=== PATIENT | female | born 1990 | race Caucasian/White ===

== ENCOUNTER 2017-12-22 01:20 | Inpatient (IN) | payer OTHER ==
[2017-12-22] MEDS ORDERED: CARBOPROST TROMETHAMINE 250 MCG/ML 1 ML AMP IM PRN (01:44)
[2017-12-22] MEDS ORDERED: LIDOCAINE 1% (PF) 10 MG/ML (30 ML SDV) SQ PRN (01:44)
[2017-12-22] MEDS ORDERED: OXYTOCIN 10 UNIT/ML 1 ML VIAL IM PRN (01:44)
[2017-12-22] MEDS ORDERED: TERBUTALINE 1 MG/ML VIAL SQ PRN (01:44)
[2017-12-22] MEDS ORDERED: BUTORPHANOL 1 MG/ML 1 ML VIAL IV PRN (01:44)
[2017-12-22] MEDS ORDERED: METHYLERGONOVINE 0.2 MG/ML 1 ML AMP IM PRN (01:44)
[2017-12-22] MEDS ORDERED: OXYTOCIN 20 UNITS/1000 ML NS 1,000 ML IV SCH ×3 (01:45→07:45)
[2017-12-22] MEDS: LACTATED RINGERS 1,000 ML IV SCH ×2 (02:08→07:15)
[2017-12-22 02:36] LABS: Basophils # (A) 0.1 k/uL (0-0.2); Basophils % (A) 1 %; Eosinophils # (A) 0.1 k/uL (0-0.7); Eosinophils % (A) 1 %; HCT 36.5 % (34.0-46.0); Lymphocytes % (A) 25 %; MCH 31.5 pg (25.0-35.0); MCHC 32.9 g/dL (31.0-37.0); MCV 95.7 fL (80.0-100.0); Mean Platelet Volume 7.1; Monocytes # (A) 0.7 k/uL (0-1.0); Monocytes % (A) 9 %; Neutrophils # (A) 4.8 k/uL (1.3-7.7); Neutrophils % (A) 61 %; Platelet Count 268 k/uL (150-450); RBC 3.81 m/uL (3.80-5.40); RDW 12.9 % (11.5-15.5); WBC 7.9 k/uL (3.8-10.6)
[2017-12-22] MEDS ORDERED: IBUPROFEN 600 MG TAB PO PRN (07:43)
[2017-12-22] MEDS ORDERED: ZOLPIDEM 5 MG TAB PO PRN (07:43)
[2017-12-22] MEDS ORDERED: diphenhydrAMINE 50 MG/ML 1 ML VIAL IVP PRN ×4 (07:43→07:44)
[2017-12-22] MEDS ORDERED: LANOLIN CREAM 5 GM TUBE TOPICAL PRN (07:43)
[2017-12-22] MEDS ORDERED: ACETAMINOPHEN TAB 325 MG TAB PO PRN ×2 (07:43→07:44)
[2017-12-22] MEDS ORDERED: diphenhydrAMINE 50 MG CAP PO PRN ×2 (07:43→07:44)
[2017-12-22] MEDS ORDERED: HYDROCORTISONE 2.5% RECTAL CREAM 30 GM TUBE RECTAL PRN (07:43)
[2017-12-22] MEDS ORDERED: diphenhydrAMINE 25 MG CAP PO PRN ×2 (07:43→07:44)
[2017-12-22] MEDS ORDERED: BENZOCAINE/MENTHOL SPRAY 1 GM/SPRAY AEROSOL TOPICAL PRN ×2 (07:43→07:44)
[2017-12-22] MEDS ORDERED: WITCH HAZEL 1 EACH MED..PAD TOPICAL PRN (07:43)
[2017-12-22] MEDS ORDERED: SIMETHICONE 80 MG CHEWABLE PO PRN (07:43)
--- NOTE | 2017-12-22 07:51 | P.HPOB ---
History of Present Illness H&P Date: 12/22/17 Chief Complaint: SROM 27 year old presents at 36 weeks 3 days in with spontaneous rupture of membranes at 1am. HEr cervix is 2-3/60/-3. She is stiven every 3-5 minutes. heart tones 130-135 with moderate variability and reactive. Review of Systems All systems: negative Constitutional: Denies chills, Denies fever Eyes: denies blurred vision, denies pain Ears, nose, mouth and throat: Denies headache, Denies sore throat Cardiovascular: Denies chest pain, Denies shortness of breath Respiratory: Denies cough Gastrointestinal: Denies abdominal pain, Denies diarrhea, Denies nausea, Denies vomiting Genitourinary: Denies dysuria, Denies hematuria Musculoskeletal: Denies myalgias Integumentary: Denies pruritus, Denies rash Neurological: Denies numbness, Denies weakness Psychiatric: Denies anxiety, Denies depression Endocrine: Denies fatigue, Denies weight change Past Medical History Past Medical History: No Reported History Additional Past Medical History / Comment(s): OB history: first two pregnancies were vaginal deliveries at 39 and 40 weeks. This is her third and she has had care with Dr. Phillips since 8 weeks gestation. Blood type is A+, antibodies negative, rubella immune, RPR nonreactive, hepatitis B negative, HIV nonreactive, toxoplasmosis negative, GBS negative. History of Any Multi-Drug Resistant Organisms: None Reported Past Surgical History: Tonsillectomy Additional Past Surgical History / Comment(s): wisdom teeth Past Anesthesia/Blood Transfusion Reactions: No Reported Reaction Past Psychological History: No Psychological Hx Reported Smoking Status: Never smoker Past Alcohol Use History: None Reported Past Drug Use History: None Reported - Past Family History Mother Family Medical History: No Reported History Medications and Allergies Home Medications Medication Instructions Recorded Confirmed Type Loratadine [Claritin] 10 mg PO DAILY 10/16/17 12/22/17 History Pnv,Calcium 72/Iron/Folic Acid 1 tab PO DAILY 10/16/17 12/22/17 History [ Plus Tablet] Allergies Allergy/AdvReac Type Severity Reaction Status Date / Time No Known Allergies Allergy Verified 12/22/17 01:33 Exam Osteopathic Statement: *. No significant issues noted on an osteopathic structural exam other than those noted in the History and Physical/Consult. Vital Signs Temp Pulse Resp BP Pulse Ox 12/22/17 01:47 97.3 F L 67 16 124/71 99 12/22/17 01:44 97.3 F L 73 16 124/71 100 Intake and Output 12/21/17 12/22/17 12/22/17 22:59 06:59 14:59 Other: Weight 79.379 kg Heart: Regular rate and rhythm Lungs: Clear to auscultation bilaterally Abdomen: Soft, nontender Extremities: Negative Homans sign Results Result Diagrams: 12/22/17 02:18 Assessment and Plan (1) Spontaneous rupture of membranes Current Visit: Yes Status: Acute Code(s): WUQ7590 - SNOMED Code(s): 142020658 (2) Normal labor Current Visit: Yes Status: Acute Code(s): O80 - ENCOUNTER FOR FULL-TERM UNCOMPLICATED DELIVERY; Z37.9 - OUTCOME OF DELIVERY, UNSPECIFIED SNOMED Code(s ): 30781594 Plan: 1. Expectant management 2. Anticipate normal vaginal delivery
[2017-12-22] MEDS: IBUPROFEN 600 MG TAB PO PRN ×3 (08:01→19:17)
--- NOTE | 2017-12-22 08:07 | P.PROBDLV ---
Vaginal Delivery Note - . Vaginal Delivery Note: Patient precipitously advanced to complete and pushing going from 3 cm to complete and pushing in less than an hour. I happened to be on the OB unit and was called in for delivery of Zara. Head was delivered without difficulty from left occiput anterior position and anterior posterior shoulders were easily delivered with gentle downward upper traction followed by the remainder the baby. Once baby was delivered mouth nares were bulb suctioned and baby was then placed on mother's abdomen where the umbilical cord was allowed to pulsate for 20 seconds prior to clamping and cutting. Once clamped and cut nursery personnel was present to assume care. Placenta was then delivered intact but had a velamentous insertion in the cord almost completely popped off. It will be sent to pathology for evaluation. A second-degree midline laceration was noted and repaired in usual fashion. scores were 8 and 9 at one and 5 minutes respectively and the weight was 7 lbs. 8 oz. Both mother and baby appear stable following delivery.
[2017-12-22] MEDS: SENNOSIDES-DOCUSATE SODIUM 1 EACH TAB PO SCH (19:17)
[2017-12-23] MEDS: IBUPROFEN 600 MG TAB PO PRN ×2 (04:34→12:25)
[2017-12-23 06:01] LABS: Basophils % (A) 0 %; Eosinophils # (A) 0.1 k/uL (0-0.7); Eosinophils % (A) 1 %; HCT 34.3 % (34.0-46.0); HGB 11.3 gm/dL (11.4-16.0); Lymphocytes # (A) 2.2 k/uL (1.0-4.8); Lymphocytes % (A) 24 %; MCV 97.2 fL (80.0-100.0); Mean Platelet Volume 7.1; Monocytes # (A) 0.6 k/uL (0-1.0); Monocytes % (A) 7 %; Neutrophils # (A) 6.2 k/uL (1.3-7.7); Neutrophils % (A) 67 %; Platelet Count 244 k/uL (150-450); RBC 3.53 m/uL (3.80-5.40); RDW 12.9 % (11.5-15.5); WBC 9.3 k/uL (3.8-10.6)
[2017-12-23] MEDS: SENNOSIDES-DOCUSATE SODIUM 1 EACH TAB PO SCH ×3 (07:17→21:59)
--- NOTE | 2017-12-23 08:53 | P.PNOBGVD ---
Subjective - Subjective Principal diagnosis: Status post vaginal delivery day #1 Interval history: Patient is ambulating. Lochia is moderate. She is pumping her breast milk. Baby is in level I nursery at this time. Patient reports: Reports appetite normal, Reports voiding normally, Reports pain well controlled, Reports ambulating normally : other (In level I nursery) Objective - Latest Vital Signs Latest vital signs: Vital Signs Temp Pulse Resp BP Pulse Ox 12/23/17 07:47 98.4 F 65 18 112/73 100 12/23/17 00:00 71 16 96/51 12/22/17 20:00 63 16 123/68 12/22/17 15:16 98.6 F 71 15 114/61 12/22/17 09:45 96.2 F L 67 16 107/57 12/22/17 09:15 77 15 110/55 - Exam Extremities: Present: edema. Absent: tenderness Abdomen: Present: normal appearance, soft. Absent: distention, tenderness Uterus: Present: normal, firm. Absent: tenderness - Labs Labs: Abnormal Lab Results - Last 24 Hours (Table) 12/23/17 Range/Units 05:37 RBC 3.53 L (3.80-5.40) m/uL Hgb 11.3 L (11.4-16.0) gm/dL Assessment and Plan Assessment: Status post vaginal delivery day #1 Plan: Will continue with care today. Patient understands she will need to be discharged tomorrow regardless of whether baby can go home. She was given information on the [employer]. She will also be given a prescription for a breast pump.
[2017-12-24] MEDS: IBUPROFEN 600 MG TAB PO PRN ×2 (08:13→16:51)
[2017-12-24] MEDS: SENNOSIDES-DOCUSATE SODIUM 1 EACH TAB PO SCH (08:14)
[2017-12-24 08:57] VITALS: RESP 18
--- NOTE | 2017-12-24 13:03 | P.DS ---
Providers Date of admission: 12/22/17 01:40 Expected date of discharge: 12/24/17 Attending physician: Claudia Phillips Primary care physician: Stated None Hospital Course: This is a 27-year-old female 3 para 2 at 36-3/7 weeks who presented with spontaneous rupture of membranes and delivered vaginally a viable female infant on 12/22/2017 with scores of 8 at 1 minute and 9 at 5 minutes and infant weight of 7 lbs. 8 oz. Her course has been uncomplicated. She is pumping her breast milk. Lochia is decreasing. Pain is fairly well controlled with ibuprofen. Her baby is in level I nursery and is unable to go home at this time. Vital signs are stable. Abdomen is soft with fundus firm and nontender. Extremities show negative Homans. Impression is status post vaginal delivery day #2. Plan is to discharge home today. Routine instructions are given. She will be given a prescription for ibuprofen and a breast pump. She is advised to call the office if she has any further questions or concerns prior to her appointment time. She is advised to follow up in the office in 6 weeks for a check. Procedures: Spontaneous vaginal delivery of a viable female on 12/22/2017. Patient Condition at Discharge: Stable Plan - Discharge Summary New Discharge Prescriptions: New RX: Ibuprofen [Motrin] 600 mg PO Q6HR PRN #60 tab PRN Reason: Mild Pain Or Fever >= 100.5 Continue RX: Pnv,Calcium 72/Iron/Folic Acid [ Plus Tablet] 1 tab PO DAILY RX: Loratadine [Claritin] 10 mg PO DAILY Discharge Medication List RX: Loratadine [Claritin] 10 mg PO DAILY 10/16/17 [History] RX: Pnv,Calcium 72/Iron/Folic Acid [ Plus Tablet] 1 tab PO DAILY [History] RX: Ibuprofen [Motrin] 600 mg PO Q6HR PRN #60 tab 12/24/17 [Rx] Follow up Appointment(s)/Referral(s): Claudia Phillips DO [Doctor of Osteopathic Medicine] - 6 Weeks Activity/Diet/Wound Care/Special Instructions: Instructions 1. Do not begin any exercise program for 3 weeks. 2. Do not resume sexual relations for 3 weeks or longer if uncomfortable. 3. You may take tub baths or showers at any time. 4. You may use tampons if desired after 3 weeks. 5. Keep the area of episiotomy (stitches) clean and dry. 6. If you are not nursing, wear a good fitting, supportive bra during the day and limit fluid intake for at least 1 week to prevent breast engorgement. 7. Call the office, [phone], within the next week to make appointment for your 6 week checkup if it has not already been made. 8. Report any of the following occurrences to the doctor promptly: a. Heavy, excessive bleeding b. Chills, fever c. Burning or frequency of urination d. Pain or redness and breasts if nursing e. Increasing pain or swelling in episiotomy (stitches). In addition to the above instructions, the following additional should be followed: 1. No heavy lifting or straining (exercising) until after 6 week checkup. 2. Keep abdominal incision clean and dry: You may wear a dressing if more comfortable. 3. Make office appointment for 10 days after going home or as instructed by her doctor. Discharge Disposition: HOME SELF-CARE
[2017-12-24 17:02] VITALS: BP 117/72; PULSE 60; TEMP 98.1
== END 2017-12-24 17:23 | disposition home or self-care (01) | DRG 775 ==
LOC: FBPOP 01:20 → MERGE 01:40 → 4FBP 01:40
PROVIDERS: ADMIT Obstetrics & Gynecology; ATTEND Obstetrics & Gynecology
PROC: 0KQM0ZZ Repair Perineum Muscle, Open Approach (ICD-10-PCS; principal; 2017-12-22)
PROC: 10E0XZZ Delivery of Products of Conception, External Approach (ICD-10-PCS; principal; 2017-12-22)
DX: O43.129 Velamentous insertion of umbilical cord, unspecified trimester (principal); Z37.0 Single live birth; O62.3 Precipitate labor; O70.1 Second degree perineal laceration during delivery; Z3A.36 36 weeks gestation of pregnancy
CPT/HCPCS: 59025; 85025; 88307; 99213

== ENCOUNTER 2017-12-29 16:39 | Emergency (ER) | payer OTHER ==
[2017-12-29 17:35] LABS: Basophils % (A) 0 %; Eosinophils # (A) 0.2 k/uL (0-0.7); Eosinophils % (A) 2 %; HCT 41.4 % (34.0-46.0); HGB 13.3 gm/dL (11.4-16.0); Lymphocytes # (A) 1.6 k/uL (1.0-4.8); Lymphocytes % (A) 16 %; MCH 31.1 pg (25.0-35.0); MCHC 32.2 g/dL (31.0-37.0); MCV 96.7 fL (80.0-100.0); Mean Platelet Volume 6.7; Monocytes # (A) 0.8 k/uL (0-1.0); Monocytes % (A) 8 %; Neutrophils # (A) 7.3 k/uL (1.3-7.7); Neutrophils % (A) 73 %; Platelet Count 322 k/uL (150-450); RBC 4.28 m/uL (3.80-5.40); RDW 12.8 % (11.5-15.5)
[2017-12-29 17:39] LABS: ALT 54 U/L (9-52); AST 37 U/L (14-36); Albumin 4.3 g/dL (3.5-5.0); Alkaline Phosphatase 106 U/L (38-126); Anion Gap 10 mmol/L; Blood Urea Nitrogen 10 mg/dL (7-17); Calcium 9.9 mg/dL (8.4-10.2); Carbon Dioxide 26 mmol/L (22-30); Chloride 104 mmol/L (98-107); Glucose 97 mg/dL (74-99); Potassium 4.4 mmol/L (3.5-5.1); Sodium 140 mmol/L (137-145); Total Bilirubin 0.5 mg/dL (0.2-1.3); Total Protein 7.5 g/dL (6.3-8.2)
[2017-12-29 17:41] LABS: Appearance,Urine Cloudy (Clear); Bacteria,Urine Rare /hpf; Bilirubin,Urine Negative (Negative); Blood,Urine Moderate (Negative); Color,Urine Light Yellow; Glucose,Urine (UA) Negative (Negative); Granular Casts,Urine 1 /lpf (0); Ketones,Urine Negative (Negative); Leukocyte Esterase,Urine Large (Negative); Mucus,Urine Rare /hpf; Nitrite,Urine Negative (Negative); Protein,Urine Negative (Negative); RBC,Urine 3 /hpf (0-5); Specific Gravity,Urine 1.008 (1.001-1.035); Squamous Epithelial Cell,Urine 5 /hpf (0-4); Urobilinogen,Urine <2.0 mg/dL (<2.0); WBC,Urine 87 /hpf (0-5)
[2017-12-29] MEDS ORDERED: ACETAMINOPHEN TAB 500 MG TAB PO STA (18:20)
[2017-12-29] MEDS ORDERED: SODIUM CHLORIDE 0.9% 1,000 ML IV ONE (18:20)
[2017-12-29] MEDS ORDERED: IBUPROFEN 600 MG TAB PO STA (18:20)
--- NOTE | 2017-12-29 18:23 | ED ---
Fever HPI <JoceDario - Last Filed: 12/29/17 21:47> - General Source: patient Mode of arrival: ambulatory Limitations: no limitations <Vickie Tilley - Last Filed: 12/29/17 22:16> - General Chief Complaint: Fever Stated Complaint: Fever/had baby week ago - History of Present Illness Initial Comments: 27-year-old female patient who is status post vaginal delivery 1 week ago presents to the emergency department today for evaluation of fever. Patient states that she has been feeling weak and having chills for the last 3 days. Patient states that today she checked her temperature and it was was 101F at home. Patient states that she is also having foul smelling vaginal discharge. The patient states he did lighten up today however. Patient denies any dysuria however states she has been urinating more frequently. Patient denies any significant lower abdominal pain. Denies any cough, nasal congestion, sore throat, or ear pain. Patient denies any recent rash, shortness breath, chest pain, nausea, vomiting, diarrhea, constipation, numbness, tingling, dizziness, headache, visual changes, or any other complaints. (Vickie Tilley) - Related Data Home Medications Medication Instructions Recorded Confirmed Pnv,Calcium 72/Iron/Folic Acid 1 tab PO DAILY 10/16/17 12/29/17 [ Plus Tablet] Previous Rx's Medication Instructions Recorded Ibuprofen [Motrin] 600 mg PO Q6HR PRN #60 tab 12/24/17 Cephalexin [Keflex] 500 mg PO Q6H #40 cap 12/29/17 Allergies Allergy/AdvReac Type Severity Reaction Status Date / Time No Known Allergies Allergy Verified 12/29/17 18:13 Review of Systems ROS Other: All systems not noted in ROS Statement are negative. <Dario Hobson - Last Filed: 12/29/17 21:47> ROS Other: All systems not noted in ROS Statement are negative. <Vickie Tilley - Last Filed: 12/29/17 22:16> ROS Statement: Those systems with pertinent positive or pertinent negative responses have been documented in the HPI. Past Medical History Past Medical History: No Reported History Additional Past Medical History / Comment(s): OB history: first two pregnancies were vaginal deliveries at 39 and 40 weeks. This is her third and she has had care with Dr. Phillips since 8 weeks gestation. Blood type is A+, antibodies negative, rubella immune, RPR nonreactive, hepatitis B negative, HIV nonreactive, toxoplasmosis negative, GBS negative. History of Any Multi-Drug Resistant Organisms: None Reported Past Surgical History: Tonsillectomy Additional Past Surgical History / Comment(s): wisdom teeth Past Anesthesia/Blood Transfusion Reactions: No Reported Reaction Past Psychological History: No Psychological Hx Reported Smoking Status: Never smoker Past Alcohol Use History: None Reported Past Drug Use History: None Reported - Past Family History Mother Family Medical History: No Reported History <Vickie Tilley - Last Filed: 12/29/17 22:16> General Exam Limitations: no limitations General appearance: alert, in no apparent distress, other (This is a well- developed, well-nourished adult female patient in no acute distress. Vital signs upon presentation are temperature 100.7F, pulse 94, respirations 20, blood pressure 128/73, pulse ox 100% on room air.) Eye exam: Present: normal appearance, PERRL, EOMI. Absent: scleral icterus, conjunctival injection, periorbital swelling ENT exam: Present: normal exam, normal oropharynx, mucous membranes moist Respiratory exam: Present: normal lung sounds bilaterally. Absent: respiratory distress, wheezes, rales, rhonchi, stridor Cardiovascular Exam: Present: regular rate, normal rhythm, normal heart sounds. Absent: systolic murmur, diastolic murmur, rubs, gallop, clicks GI/Abdominal exam: Present: soft, normal bowel sounds. Absent: distended, tenderness, guarding, rebound, rigid Back exam: Present: normal inspection. Absent: CVA tenderness (R), CVA tenderness (L) Psychiatric exam: Present: normal affect, normal mood Skin exam: Present: warm, dry, intact, normal color. Absent: rash <Vickie Tilley M - Last Filed: 12/29/17 22:16> Vital Signs 12/29/17 12/29/17 12/29/17 16:50 19:41 22:03 Temperature 100.7 F H 98.7 F 97.8 F Pulse Rate 94 58 L Respiratory 20 16 Rate Blood Pressure 128/73 102/54 O2 Sat by Pulse 100 100 Oximetry Medical Decision Making - Lab Data Result diagrams: 12/29/17 17:19 12/29/17 17:19 <Dario Hobson - Last Filed: 12/29/17 21:47> - Lab Data Result diagrams: 12/29/17 17:19 12/29/17 17:19 - Radiology Data Radiology results: report reviewed, image reviewed <Vickie Tilley - Last Filed: 12/29/17 22:16> - Medical Decision Making I saw this patient in conjunction with the physician home care assistant. I performed independent history and physical exam. Agree with case management. (Dario Hobson) 27-year-old female patient presents to emergency department today for evaluation of fever and chills for the last 3 days. Physical examination was relatively unremarkable. Speculum exam with bimanual was performed, it uterus was somewhat tender. There was presence of foul-smelling discharge. Labs reviewed and did reveal white blood cells in the urine. White blood cell count was normal but there was left shift. Temperature here is 100.7. Other vital signs were stable. My attending Dr. Hobson did speak to Dr. Phillips, the patient' s weigher and grader. At this time patient appears stable enough to be treated outpatient. We will treat for urinary tract infection, but continue to monitor for endometritis. Patient will be treated with keflex so she is able to breast feed. She is instructed to follow up with OBGYN as soon as possible. Return parameters are discussed in detail. She verbalizes understanding and agrees with this plan. (Vickie Tilley) - Lab Data Lab Results 12/29/17 12/29/17 12/29/17 Range/Units 17:19 17:19 17:19 WBC 10.0 (3.8-10.6) k/uL RBC 4.28 (3.80-5.40) m/uL Hgb 13.3 (11.4-16.0) gm/dL Hct 41.4 (34.0-46.0) % MCV 96.7 (80.0-100.0) fL MCH 31.1 (25.0-35.0) pg MCHC 32.2 (31.0-37.0) g/dL RDW 12.8 (11.5-15.5) % Plt Count 322 (150-450) k/uL Neutrophils % 73 % Lymphocytes % 16 % Monocytes % 8 % Eosinophils % 2 % Basophils % 0 % Neutrophils # 7.3 (1.3-7.7) k/uL Lymphocytes # 1.6 (1.0-4.8) k/uL Monocytes # 0.8 (0-1.0) k/uL Eosinophils # 0.2 (0-0.7) k/uL Basophils # 0.0 (0-0.2) k/uL Sodium 140 (137-145) mmol/L Potassium 4.4 (3.5-5.1) mmol/L Chloride 104 (98-107) mmol/L Carbon Dioxide 26 (22-30) mmol/L Anion Gap 10 mmol/L BUN 10 (7-17) mg/dL Creatinine 0.57 (0.52-1.04) mg/dL Est GFR (CKD-EPI)AfAm >90 (>60 ml/min/1.73 sqM) Est GFR (CKD-EPI)NonAf >90 (>60 ml/min/1.73 sqM) Glucose 97 (74-99) mg/dL Plasma Lactic Acid Gui (0.7-2.0) mmol/L Calcium 9.9 (8.4-10.2) mg/dL Total Bilirubin 0.5 (0.2-1.3) mg/dL AST 37 H (14-36) U/L ALT 54 H (9-52) U/L Alkaline Phosphatase 106 (38-126) U/L Total Protein 7.5 (6.3-8.2) g/dL Albumin 4.3 (3.5-5.0) g/dL Urine Color Light Yellow Urine Appearance Cloudy H (Clear) Urine pH 8.0 (5.0-8.0) Ur Specific [place] 1.008 (1.001-1.035) Urine Protein Negative (Negative) Urine Glucose (UA) Negative (Negative) Urine Ketones Negative (Negative) Urine Blood Moderate H (Negative) Urine Nitrite Negative (Negative) Urine Bilirubin Negative (Negative) Urine Urobilinogen <2.0 (<2.0) mg/dL Ur Leukocyte Esterase Large H (Negative) Urine RBC 3 (0-5) /hpf Urine WBC 87 H (0-5) /hpf Ur Squamous Epith Cells 5 H (0-4) /hpf Urine Bacteria Rare H (None) /hpf Granular Casts 1 (0) /lpf Urine Mucus Rare H (None) /hpf 09/04/18 Range/Units 17:19 WBC (3.8-10.6) k/uL RBC (3.80-5.40) m/uL Hgb (11.4-16.0) gm/dL Hct (34.0-46.0) % MCV (80.0-100.0) fL MCH (25.0-35.0) pg MCHC (31.0-37.0) g/dL RDW (11.5-15.5) % Plt Count (150-450) k/uL Neutrophils % % Lymphocytes % % Monocytes % % Eosinophils % % Basophils % % Neutrophils # (1.3-7.7) k/uL Lymphocytes # (1.0-4.8) k/uL Monocytes # (0-1.0) k/uL Eosinophils # (0-0.7) k/uL Basophils # (0-0.2) k/uL Sodium (137-145) mmol/L Potassium (3.5-5.1) mmol/L Chloride (98-107) mmol/L Carbon Dioxide (22-30) mmol/L Anion Gap mmol/L BUN (7-17) mg/dL Creatinine (0.52-1.04) mg/dL Est GFR (CKD-EPI)AfAm (>60 ml/min/1.73 sqM) Est GFR (CKD-EPI)NonAf (>60 ml/min/1.73 sqM) Glucose (74-99) mg/dL Plasma Lactic Acid Gui 0.9 (0.7-2.0) mmol/L Calcium (8.4-10.2) mg/dL Total Bilirubin (0.2-1.3) mg/dL AST (14-36) U/L ALT (9-52) U/L Alkaline Phosphatase (38-126) U/L Total Protein (6.3-8.2) g/dL Albumin (3.5-5.0) g/dL Urine Color Urine Appearance (Clear) Urine pH (5.0-8.0) Ur Specific [place] (1.001-1.035) Urine Protein (Negative) Urine Glucose (UA) (Negative) Urine Ketones (Negative) Urine Blood (Negative) Urine Nitrite (Negative) Urine Bilirubin (Negative) Urine Urobilinogen (<2.0) mg/dL Ur Leukocyte Esterase (Negative) Urine RBC (0-5) /hpf Urine WBC (0-5) /hpf Ur Squamous Epith Cells (0-4) /hpf Urine Bacteria (None) /hpf Granular Casts (0) /lpf Urine Mucus (None) /hpf - Radiology Data Transvaginal ultrasound was obtained. Report was reviewed in its entirety. Impression by Dr. Heath shows no focal findings. (Vickie Tilley) Disposition <Dario Hobson - Last Filed: 12/29/17 21:47> Is patient prescribed a controlled substance at d/c from ED?: No Time of Disposition: 21:54 <Vickie Tilley - Last Filed: 12/29/17 22:16> Clinical Impression: Endometritis, Urinary tract infection Disposition: HOME SELF-CARE Condition: Good Instructions: Urinary Tract Infection in Women (ED), Fever in Adults (ED), Endometritis (ED) Additional Instructions: Complete and about a prescription in full. Follow-up with your METER READING CLERK for recheck as possible. Return here immediately for any new, worsening, or concerning symptoms. Prescriptions: Cephalexin [Keflex] 500 mg PO Q6H #40 cap Referrals: Leatha Chahal MD [Primary Care Provider] - 1-2 days Claudia Phillips DO [Doctor of Osteopathic Medicine] - 1-2 days
--- NOTE | 2017-12-29 20:00 | US ---
EXAMINATION TYPE: US transvaginal DATE OF EXAM: 12/29/2017 COMPARISON: NONE CLINICAL HISTORY: Pain. Had baby 1 week ago pain and fever. TECHNIQUE: Transvaginal (TV). EXAM MEASUREMENTS: Uterus: 14.3 x 8.5 x 12.4 cm Uterus: Anteverted wnl Endometrium: Heterogenous, and difficult to visualize but appears to measure 1.3 cm endometrial stri pe thickness. Right Ovary: Obscured by overlying bowel gas Left Ovary: Obscured by overlying bowel gas Bilateral Adnexa: wnl Posterior cul-de-sac: wnl IMPRESSION: NO FOCAL FINDINGS.
[2017-12-29] MEDS ORDERED: cefTRIAXone IN SWFI 1,000 MG/10 ML SYRINGE IVP STA (21:53)
[2017-12-29 22:04] VITALS: BP 102/54; PULSE 58; RESP 16; TEMP 97.8
[2017-12-29] MEDS ORDERED: FAMOTIDINE 20 MG TAB PO STA (22:54)
[2017-12-29] MEDS ORDERED: diphenhydrAMINE 50 MG/ML 1 ML VIAL IM STA (22:54)
[2017-12-29] MEDS ORDERED: methylPREDNISolone SOD SUCCI 125 MG/2 ML VIAL IM ONE (22:54)
--- NOTE | 2017-12-29 23:15 | ED ---
Medical Decision Making - Lab Data Result diagrams: 12/29/17 17:19 12/29/17 17:19 Lab Results 12/29/17 12/29/17 12/29/17 Range/Units 17:19 17:19 17:19 WBC 10.0 (3.8-10.6) k/uL RBC 4.28 (3.80-5.40) m/uL Hgb 13.3 (11.4-16.0) gm/dL Hct 41.4 (34.0-46.0) % MCV 96.7 (80.0-100.0) fL MCH 31.1 (25.0-35.0) pg MCHC 32.2 (31.0-37.0) g/dL RDW 12.8 (11.5-15.5) % Plt Count 322 (150-450) k/uL Neutrophils % 73 % Lymphocytes % 16 % Monocytes % 8 % Eosinophils % 2 % Basophils % 0 % Neutrophils # 7.3 (1.3-7.7) k/uL Lymphocytes # 1.6 (1.0-4.8) k/uL Monocytes # 0.8 (0-1.0) k/uL Eosinophils # 0.2 (0-0.7) k/uL Basophils # 0.0 (0-0.2) k/uL Sodium 140 (137-145) mmol/L Potassium 4.4 (3.5-5.1) mmol/L Chloride 104 (98-107) mmol/L Carbon Dioxide 26 (22-30) mmol/L Anion Gap 10 mmol/L BUN 10 (7-17) mg/dL Creatinine 0.57 (0.52-1.04) mg/dL Est GFR (CKD-EPI)AfAm >90 (>60 ml/min/1.73 sqM) Est GFR (CKD-EPI)NonAf >90 (>60 ml/min/1.73 sqM) Glucose 97 (74-99) mg/dL Plasma Lactic Acid Gui (0.7-2.0) mmol/L Calcium 9.9 (8.4-10.2) mg/dL Total Bilirubin 0.5 (0.2-1.3) mg/dL AST 37 H (14-36) U/L ALT 54 H (9-52) U/L Alkaline Phosphatase 106 (38-126) U/L Total Protein 7.5 (6.3-8.2) g/dL Albumin 4.3 (3.5-5.0) g/dL Urine Color Light Yellow Urine Appearance Cloudy H (Clear) Urine pH 8.0 (5.0-8.0) Ur Specific [place] 1.008 (1.001-1.035) Urine Protein Negative (Negative) Urine Glucose (UA) Negative (Negative) Urine Ketones Negative (Negative) Urine Blood Moderate H (Negative) Urine Nitrite Negative (Negative) Urine Bilirubin Negative (Negative) Urine Urobilinogen <2.0 (<2.0) mg/dL Ur Leukocyte Esterase Large H (Negative) Urine RBC 3 (0-5) /hpf Urine WBC 87 H (0-5) /hpf Ur Squamous Epith Cells 5 H (0-4) /hpf Urine Bacteria Rare H (None) /hpf Granular Casts 1 (0) /lpf Urine Mucus Rare H (None) /hpf 12/29/17 Range/Units 17:19 WBC (3.8-10.6) k/uL RBC (3.80-5.40) m/uL Hgb (11.4-16.0) gm/dL Hct (34.0-46.0) % MCV (80.0-100.0) fL MCH (25.0-35.0) pg MCHC (31.0-37.0) g/dL RDW (11.5-15.5) % Plt Count (150-450) k/uL Neutrophils % % Lymphocytes % % Monocytes % % Eosinophils % % Basophils % % Neutrophils # (1.3-7.7) k/uL Lymphocytes # (1.0-4.8) k/uL Monocytes # (0-1.0) k/uL Eosinophils # (0-0.7) k/uL Basophils # (0-0.2) k/uL Sodium (137-145) mmol/L Potassium (3.5-5.1) mmol/L Chloride (98-107) mmol/L Carbon Dioxide (22-30) mmol/L Anion Gap mmol/L BUN (7-17) mg/dL Creatinine (0.52-1.04) mg/dL Est GFR (CKD-EPI)AfAm (>60 ml/min/1.73 sqM) Est GFR (CKD-EPI)NonAf (>60 ml/min/1.73 sqM) Glucose (74-99) mg/dL Plasma Lactic Acid Gui 0.9 (0.7-2.0) mmol/L Calcium (8.4-10.2) mg/dL Total Bilirubin (0.2-1.3) mg/dL AST (14-36) U/L ALT (9-52) U/L Alkaline Phosphatase (38-126) U/L Total Protein (6.3-8.2) g/dL Albumin (3.5-5.0) g/dL Urine Color Urine Appearance (Clear) Urine pH (5.0-8.0) Ur Specific [place] (1.001-1.035) Urine Protein (Negative) Urine Glucose (UA) (Negative) Urine Ketones (Negative) Urine Blood (Negative) Urine Nitrite (Negative) Urine Bilirubin (Negative) Urine Urobilinogen (<2.0) mg/dL Ur Leukocyte Esterase (Negative) Urine RBC (0-5) /hpf Urine WBC (0-5) /hpf Ur Squamous Epith Cells (0-4) /hpf Urine Bacteria (None) /hpf Granular Casts (0) /lpf Urine Mucus (None) /hpf Disposition Clinical Impression: Endometritis, Urinary tract infection, Allergic reaction Disposition: HOME SELF-CARE Condition: Good Instructions: Urinary Tract Infection in Women (ED), Urticaria (ED), Fever in Adults (ED), Endometritis (ED), General Allergic Reaction (ED) Additional Instructions: Complete and about a prescription in full. Follow-up with your WAREHOUSE PERSON for recheck as possible. Return here immediately for any new, worsening, or concerning symptoms. Prescriptions: Sulfamethoxazole/Trimethoprim [Bactrim DS 800-160 mg] 1 each PO BID #20 tablet Is patient prescribed a controlled substance at d/c from ED?: No Referrals: Leatha Chahal MD [Primary Care Provider] - 1-2 days Claudia Phillips DO [Doctor of Osteopathic Medicine] - 1-2 days Time of Disposition: 23:15
== END 2017-12-29 23:36 | disposition home or self-care (01) ==
LOC: EC 16:39
DX: O9A.23 Injury, poisoning and certain other consequences of external causes complicating the puerperium (principal); H57.8 Other specified disorders of eye and adnexa; T36.1X5A Adverse effect of cephalosporins and other beta-lactam antibiotics, initial encounter; O86.12 Endometritis following delivery; O86.20 Urinary tract infection following delivery, unspecified; Y92.239 Unspecified place in hospital as the place of occurrence of the external cause
CPT/HCPCS: 99284; 96374; 96361 ×4; 96372 ×2; 36415; 80053; 83605; 85025; 81001; 87040; 87086; 76830; J1200; J2930; J0696

== ENCOUNTER 2019-01-03 12:30 | Emergency (ER) | payer OTHER ==
[2019-01-03] MEDS ORDERED: SODIUM CHLORIDE 0.9% 500 ML 500 ML IV STA (12:43)
[2019-01-03] MEDS ORDERED: MORPHINE SULFATE 4 MG/ML SYRINGE IV STA (12:43)
[2019-01-03] MEDS ORDERED: SODIUM CHLORIDE 0.9% 1,000 ML IV STA (12:43)
[2019-01-03] MEDS ORDERED: ONDANSETRON 4 MG/2 ML VIAL IVP STA (12:43)
--- NOTE | 2019-01-03 12:46 | ED ---
Abdominal Pain HPI - General Chief Complaint: Abdominal Pain Stated Complaint: lower abdominal pain Time Seen by Provider: 01/03/19 12:37 Source: patient, RN notes reviewed Mode of arrival: ambulatory Limitations: no limitations - History of Present Illness Initial Comments: This a 28-year-old female presents emergency Department with chief complaint of right-sided abdominal pain. Patient states started around 8:00 this morning has progressively worsened. Patient states that she did see her primary care physician for sore throat and this pain patellar is probably just an ovarian cyst and take Motrin. Patient states the pain is intensified to parts cannot tolerate it no relief of Motrin. Patient states that she's had some fever, chills is not feeling well. Patient has no dysuria no hematuria denies any chance denies any prior abdominal surgeries no diarrhea no constipation. She did have some nausea. - Related Data Home Medications Medication Instructions Recorded Confirmed Azithromycin [Zithromax Z-pack] See Taper PO DIRECTED 01/03/19 01/03/19 Previous Rx's Medication Instructions Recorded Ibuprofen [Motrin] 600 mg PO Q6HR PRN #60 tab 12/24/17 Allergies Allergy/AdvReac Type Severity Reaction Status Date / Time ceftriaxone [From Rocephin] Allergy Rash/Hives Verified 01/03/19 12:55 Review of Systems ROS Statement: Those systems with pertinent positive or pertinent negative responses have been documented in the HPI. ROS Other: All systems not noted in ROS Statement are negative. Past Medical History Past Medical History: No Reported History Additional Past Medical History / Comment(s): OB history: first two pregnancies were vaginal deliveries at 39 and 40 weeks. This is her third and she has had care with Dr. Phillips since 8 weeks gestation. Blood type is A+, antibodies negative, rubella immune, RPR nonreactive, hepatitis B negative, HIV nonreactive, toxoplasmosis negative, GBS negative. History of Any Multi-Drug Resistant Organisms: None Reported Past Surgical History: Tonsillectomy Additional Past Surgical History / Comment(s): wisdom teeth Past Anesthesia/Blood Transfusion Reactions: No Reported Reaction Past Psychological History: No Psychological Hx Reported Smoking Status: Never smoker Past Alcohol Use History: None Reported Past Drug Use History: None Reported - Past Family History Mother Family Medical History: No Reported History General Exam Limitations: no limitations General appearance: alert, in no apparent distress Head exam: Present: atraumatic, normocephalic, normal inspection Respiratory exam: Present: normal lung sounds bilaterally. Absent: respiratory distress, wheezes, rales, rhonchi, stridor Cardiovascular Exam: Present: regular rate, normal rhythm, normal heart sounds. Absent: systolic murmur, diastolic murmur, rubs, gallop, clicks GI/Abdominal exam: Present: soft, tenderness (Moderate right lower quadrant tenderness), normal bowel sounds. Absent: distended, guarding, rebound, rigid Back exam: Absent: CVA tenderness (R), CVA tenderness (L) Neurological exam: Present: alert Skin exam: Present: warm, dry, intact, normal color. Absent: rash Course Vital Signs 01/03/19 12:32 Temperature 98.4 F Pulse Rate 73 Respiratory 18 Rate Blood Pressure 116/77 O2 Sat by Pulse 99 Oximetry Medical Decision Making - Medical Decision Making 28-year-old female presents emergency dept for right-sided abdominal pain. Labs CT and urinalysis obtained. Patient has a ruptured 2.4 cm right ovarian cyst. Patient will be discharged with pain medication. Patient will follow-up with ASSISTANT MANAGER PT return for any worsening symptoms. - Lab Data Result diagrams: 01/03/19 12:58 01/03/19 12:58 Lab Results 01/03/19 01/03/19 01/03/19 Range/Units 12:58 12:58 12:58 WBC 5.1 (3.8-10.6) k/uL RBC 4.34 (3.80-5.40) m/uL Hgb 13.3 (11.4-16.0) gm/dL Hct 39.6 (34.0-46.0) % MCV 91.2 (80.0-100.0) fL MCH 30.7 (25.0-35.0) pg MCHC 33.6 (31.0-37.0) g/dL RDW 14.5 (11.5-15.5) % Plt Count 218 (150-450) k/uL Neutrophils % 78 % Lymphocytes % 13 % Monocytes % 6 % Eosinophils % 2 % Basophils % 1 % Neutrophils # 4.0 (1.3-7.7) k/uL Lymphocytes # 0.6 L (1.0-4.8) k/uL Monocytes # 0.3 (0-1.0) k/uL Eosinophils # 0.1 (0-0.7) k/uL Basophils # 0.0 (0-0.2) k/uL Sodium 138 (137-145) mmol/L Potassium 3.9 (3.5-5.1) mmol/L Chloride 104 (98-107) mmol/L Carbon Dioxide 23 (22-30) mmol/L Anion Gap 11 mmol/L BUN 16 (7-17) mg/dL Creatinine 0.54 (0.52-1.04) mg/dL Est GFR (CKD-EPI)AfAm >90 (>60 ml/min/1.73 sqM) Est GFR (CKD-EPI)NonAf >90 (>60 ml/min/1.73 sqM) Glucose 117 H (74-99) mg/dL Calcium 9.5 (8.4-10.2) mg/dL Total Bilirubin 0.5 (0.2-1.3) mg/dL AST 23 (14-36) U/L ALT 23 (9-52) U/L Alkaline Phosphatase 61 (38-126) U/L Total Protein 7.1 (6.3-8.2) g/dL Albumin 4.3 (3.5-5.0) g/dL Lipase 74 (23-300) U/L Urine Color Urine Appearance (Clear) Urine pH (5.0-8.0) Ur Specific [place] (1.001-1.035) Urine Protein (Negative) Urine Glucose (UA) (Negative) Urine Ketones (Negative) Urine Blood (Negative) Urine Nitrite (Negative) Urine Bilirubin (Negative) Urine Urobilinogen (<2.0) mg/dL Ur Leukocyte Esterase (Negative) Urine RBC (0-5) /hpf Urine WBC (0-5) /hpf Ur Squamous Epith Cells (0-4) /hpf Urine Mucus (None) /hpf Urine HCG, Qual Not Detected (Not Detectd) 01/03/19 Range/Units 12:58 WBC (3.8-10.6) k/uL RBC (3.80-5.40) m/uL Hgb (11.4-16.0) gm/dL Hct (34.0-46.0) % MCV (80.0-100.0) fL MCH (25.0-35.0) pg MCHC (31.0-37.0) g/dL RDW (11.5-15.5) % Plt Count (150-450) k/uL Neutrophils % % Lymphocytes % % Monocytes % % Eosinophils % % Basophils % % Neutrophils # (1.3-7.7) k/uL Lymphocytes # (1.0-4.8) k/uL Monocytes # (0-1.0) k/uL Eosinophils # (0-0.7) k/uL Basophils # (0-0.2) k/uL Sodium (137-145) mmol/L Potassium (3.5-5.1) mmol/L Chloride (98-107) mmol/L Carbon Dioxide (22-30) mmol/L Anion Gap mmol/L BUN (7-17) mg/dL Creatinine (0.52-1.04) mg/dL Est GFR (CKD-EPI)AfAm (>60 ml/min/1.73 sqM) Est GFR (CKD-EPI)NonAf (>60 ml/min/1.73 sqM) Glucose (74-99) mg/dL Calcium (8.4-10.2) mg/dL Total Bilirubin (0.2-1.3) mg/dL AST (14-36) U/L ALT (9-52) U/L Alkaline Phosphatase (38-126) U/L Total Protein (6.3-8.2) g/dL Albumin (3.5-5.0) g/dL Lipase (23-300) U/L Urine Color Yellow Urine Appearance Cloudy H (Clear) Urine pH 6.0 (5.0-8.0) Ur Specific [place] 1.032 (1.001-1.035) Urine Protein Trace H (Negative) Urine Glucose (UA) Negative (Negative) Urine Ketones Negative (Negative) Urine Blood Negative (Negative) Urine Nitrite Negative (Negative) Urine Bilirubin Negative (Negative) Urine Urobilinogen 2.0 (<2.0) mg/dL Ur Leukocyte Esterase Moderate H (Negative) Urine RBC 11 H (0-5) /hpf Urine WBC 13 H (0-5) /hpf Ur Squamous Epith Cells 2 (0-4) /hpf Urine Mucus Many H (None) /hpf Urine HCG, Qual (Not Detectd) Disposition Clinical Impression: Ruptured ovarian cyst Disposition: HOME SELF-CARE Condition: Stable Instructions (If sedation given, give patient instructions): Ruptured Ovarian Cyst (ED) Additional Instructions: Please return to the Emergency Department if symptoms worsen or any other concerns. Is patient prescribed a controlled substance at d/c from ED?: Yes When asked, does pt state using other controlled substances?: No If prescribed controlled substance>3 days was MAPS reviewed?: Prescribed <3 Days If opioid is for acute pain is fill amount 7 days or less?: Yes If Rx opioid, was Start Talking consent form obtained?: Yes Referrals: Leatha Chahal MD [Primary Care Provider] - 1-2 days Time of Disposition: 14:27
[2019-01-03 13:08] LABS: Basophils % (A) 1 %; Eosinophils # (A) 0.1 k/uL (0-0.7); Eosinophils % (A) 2 %; HCT 39.6 % (34.0-46.0); HGB 13.3 gm/dL (11.4-16.0); Lymphocytes # (A) 0.6 k/uL (1.0-4.8); Lymphocytes % (A) 13 %; MCH 30.7 pg (25.0-35.0); MCHC 33.6 g/dL (31.0-37.0); MCV 91.2 fL (80.0-100.0); Monocytes # (A) 0.3 k/uL (0-1.0); Monocytes % (A) 6 %; Neutrophils % (A) 78 %; Platelet Count 218 k/uL (150-450); RBC 4.34 m/uL (3.80-5.40); RDW 14.5 % (11.5-15.5); WBC 5.1 k/uL (3.8-10.6)
[2019-01-03 13:15] LABS: Appearance,Urine Cloudy (Clear); Bilirubin,Urine Negative (Negative); Blood,Urine Negative (Negative); Color,Urine Yellow; Glucose,Urine (UA) Negative (Negative); Ketones,Urine Negative (Negative); Leukocyte Esterase,Urine Moderate (Negative); Mucus,Urine Many /hpf; Nitrite,Urine Negative (Negative); Protein,Urine Trace (Negative); RBC,Urine 11 /hpf (0-5); Specific Gravity,Urine 1.032 (1.001-1.035); Squamous Epithelial Cell,Urine 2 /hpf (0-4)
[2019-01-03 13:21] LABS: ALT 23 U/L (9-52); AST 23 U/L (14-36); African American GFR (CKD) >90 (>60 ml/min/1.73 sqM); Albumin 4.3 g/dL (3.5-5.0); Alkaline Phosphatase 61 U/L (38-126); Anion Gap 11 mmol/L; Blood Urea Nitrogen 16 mg/dL (7-17); Calcium 9.5 mg/dL (8.4-10.2); Carbon Dioxide 23 mmol/L (22-30); Chloride 104 mmol/L (98-107); Glucose 117 mg/dL (74-99); Potassium 3.9 mmol/L (3.5-5.1); Sodium 138 mmol/L (137-145); Total Bilirubin 0.5 mg/dL (0.2-1.3); Total Protein 7.1 g/dL (6.3-8.2)
--- NOTE | 2019-01-03 14:20 | CT ---
EXAMINATION TYPE: CT abdomen pelvis w con DATE OF EXAM: 01/03/2019 COMPARISON: 9 HISTORY: Lower abdominal pain CT DLP: 673.2 mGycm CONTRAST: CT scan of the abdomen and pelvis is performed with Oral Contrast and with IV Contrast, patient injec jonny with 100 mL of Isovue 300. FINDINGS: LUNG BASES-: No visible nodule. No infiltrate. LIVER/GB: No calcified gallstones. No space occupying hepatic lesion. Biliary tree is of normal ca liber. PANCREAS: No inflammation. No distinct mass. SPLEEN: No splenic enlargement. No lesion seen. ADRENALS: No nodule. No thickening. KIDNEYS/BLADDER: No hydronephrosis. No nephrolithiasis. No distinct solid renal mass. Subcentimete r renal cortical cyst left kidney. Urinary bladder grossly unremarkable. BOWEL: Normal appendix. Normal bowel caliber. No inflammation. GENITAL ORGANS: 2.4 cm right ovarian cyst which has ruptured and is surrounded by fluid. Moderate philly e fluid within the cul-de-sac noted. The left ovary and uterus are unremarkable. LYMPH NODES: No greater than 1cm abdominal or pelvic lymph nodes are appreciated. AORTA: No significant abnormality. OSSEOUS STRUCTURES: No significant abnormality is seen. OTHER: No significant additional abnormality is seen. IMPRESSION: 1. 2.4 cm right ovarian cyst which has ruptured and is surrounded by fluid. Moderate free fluid withi n the cul-de-sac noted.
[2019-01-03 15:14] VITALS: BP 122/71; PULSE 78; RESP 17; TEMP 98.5
== END 2019-01-03 15:14 | disposition home or self-care (01) ==
LOC: EC 12:30
DX: N83.201 Unspecified ovarian cyst, right side (principal); Z32.02 Encounter for pregnancy test, result negative; Z88.1 Allergy status to other antibiotic agents
CPT/HCPCS: 36415; 80053; 83690; 85025; 81001; 81025; 87086; 74177; 99284; 96374; 96375; 96361 ×2; J2270; J2405; Q9967

== ENCOUNTER → 2019-03-17 | Outpatient (CLI) | payer OTHER ==
--- NOTE | 2019-03-17 11:19 | US ---
EXAMINATION TYPE: US pelvic complete DATE OF EXAM: 03/17/2019 COMPARISON: NONE CLINICAL HISTORY: R10.2 PELVIC PAIN,N92.0 MENORRHAGIA W REGULAR CYCLE. TECHNIQUE: . Transabdominal sonographic images of the pelvis were acquired. Transvaginal sonographi c images were medically necessary to better assess the following anatomy: Date of LMP: EXAM MEASUREMENTS: Uterus: 8.5 x 5.1 x 6.3 cm Endometrial Stripe: 0.8 cm Right Ovary: 2.8 x 1.7 x 2.8 cm Left Ovary: 2.9 x 2.8 x 2.7 cm 1. Uterus: Retroverted wnl 2. Endometrium: wnl 3. Right Ovary: wnl 4. Left Ovary: wnl 5. Bilateral Adnexa: wnl 6. Posterior cul-de-sac: small amt fluid 4 cm IMPRESSION: Small amount of free fluid within the cul-de-sac otherwise unremarkable study.
== END | disposition home or self-care (01) ==
LOC: RADUSWWP 10:22
PROVIDERS: ATTEND Obstetrics & Gynecology
DX: R10.2 Pelvic and perineal pain (principal); N92.0 Excessive and frequent menstruation with regular cycle
CPT/HCPCS: 76856

== ENCOUNTER 2021-02-10 13:50 | Emergency (ER) | payer OTHER ==
[2021-02-10 14:00] VITALS: RESP 18; TEMP 98
--- NOTE | 2021-02-10 15:31 | ED ---
Female Urogenital HPI - General Chief complaint: Vaginal Bleeding Stated complaint: 7 wks Preg,Vaginal Bleeding Time Seen by Provider: 02/10/21 15:00 Source: patient, RN notes reviewed, old records reviewed Mode of arrival: ambulatory Limitations: no limitations - History of Present Illness Initial comments: Patient is a 30-year-old female, currently 7 weeks , presenting to the emergency Department with complaints of vaginal bleeding, cramping over the past week. , RADIOPHARMACIST as Dr. Phillips. Patient states she had bleeding last week and a, was up [place] and was evaluated at a local hospital there, diagnosed for subchorionic hemorrhage. She states the bleeding did get better over the last 24-48 hours, the bleeding has increased. She is on her second pad of the day today. She has been having some lower abdominal cramping as well. No fevers or chills, no chest pain or shortness of breath. She denies any history of abdominal surgeries. She has not had bleeding in the past. She has no further complaints. Her vitals are stable upon arrival. - Related Data Home Medications Medication Instructions Recorded Confirmed Amoxicillin/Potassium Clav 1 tablet PO BID 04/18/19 04/28/19 [Augmentin 875-125 Tablet] Norgestimate-Ethinyl Estradiol 1 tablet PO DAILY 04/18/19 04/28/19 [Sprintec 28 Day Tablet] Previous Rx's Medication Instructions Recorded Ibuprofen [Motrin] 600 mg PO Q6HR PRN #60 tab 12/24/17 Allergies Allergy/AdvReac Type Severity Reaction Status Date / Time ceftriaxone [From Rocephin] Allergy Rash/Hives Verified 04/18/19 15:23 Review of Systems ROS Statement: Those systems with pertinent positive or pertinent negative responses have been documented in the HPI. ROS Other: All systems not noted in ROS Statement are negative. Past Medical History Past Medical History: No Reported History Additional Past Medical History / Comment(s): OB history: first two pregnancies were vaginal deliveries at 39 and 40 weeks. This is her third and she has had care with Dr. Phillips since 8 weeks gestation. Blood type is A+, antibodies negative, rubella immune, RPR nonreactive, hepatitis B negative, HIV nonreactive, toxoplasmosis negative, GBS negative. History of Any Multi-Drug Resistant Organisms: None Reported Past Surgical History: Tonsillectomy Additional Past Surgical History / Comment(s): wisdom teeth Past Anesthesia/Blood Transfusion Reactions: No Reported Reaction Past Psychological History: No Psychological Hx Reported Smoking Status: Current every day smoker Past Alcohol Use History: None Reported Past Drug Use History: None Reported - Past Family History Mother Family Medical History: No Reported History General Exam - General Exam Comments Initial Comments: GENERAL: Patient is well-developed and well-nourished. Patient is nontoxic and in no acute distress. HEAD: Atraumatic, normocephalic. EYES: Pupils equal round and reactive to light, extraocular movements intact, sclera anicteric, conjunctiva are normal. Eyelids were unremarkable. ENT: Moist mucous membranes. NECK: Normal range of motion, supple without lymphadenopathy or JVD. LUNGS: Unlabored respirations. Breath sounds clear to auscultation bilaterally and equal. No wheezes rales or rhonchi. HEART: Regular rate and rhythm without murmurs, rubs or gallops. ABDOMEN: Soft, nontender, normoactive bowel sounds. No guarding, no rebound. No masses appreciated. MUSCULOSKELETAL: Normal extremities with adequate strength and normal range of motion, no pitting or edema. No clubbing or cyanosis. NEUROLOGICAL: Patient is alert and oriented x 3. SKIN: Warm, Dry, normal turgor, no rashes or lesions noted. Limitations: no limitations Course Vital Signs 02/10/21 02/10/21 13:57 17:25 Temperature 98 F Pulse Rate 106 H 74 Respiratory 18 18 Rate Blood Pressure 113/63 96/59 O2 Sat by Pulse 100 100 Oximetry Medical Decision Making - Medical Decision Making Patient is 30-year-old female presenting with vaginal bleeding and cramping over the past week. She is currently 7 weeks . G4, P3, RADIOPHARMACIST as Dr. Phillips. No fevers, vitals are stable. No chest pain or shortness of breath. Labs are unremarkable, hCG Quant is 145,000, urine shows no evidence of infection. Ultrasound shows viable IUP with heart rate of 157, there is small subchorionic bleed. I discussed these findings with the patient. Blood type is A+. She can follow up with her RADIOPHARMACIST. I recommended pelvic rest. She is agreeable to plan of care and she is stable for discharge. Case discussed with Dr. Garcia. - Lab Data Result diagrams: 02/10/21 15:30 02/10/21 16:45 Lab Results 02/10/21 02/10/21 02/10/21 Range/Units 15:30 15:30 16:15 WBC 5.4 (3.8-10.6) k/uL RBC 3.96 (3.80-5.40) m/uL Hgb 12.0 (11.4-16.0) gm/dL Hct 36.5 (34.0-46.0) % MCV 92.0 (80.0-100.0) fL MCH 30.3 (25.0-35.0) pg MCHC 32.9 (31.0-37.0) g/dL RDW 13.0 (11.5-15.5) % Plt Count 220 (150-450) k/uL MPV 8.2 Neutrophils % 51 % Lymphocytes % 36 % Monocytes % 9 % Eosinophils % 2 % Basophils % 1 % Neutrophils # 2.8 (1.3-7.7) k/uL Lymphocytes # 1.9 (1.0-4.8) k/uL Monocytes # 0.5 (0-1.0) k/uL Eosinophils # 0.1 (0-0.7) k/uL Basophils # 0.0 (0-0.2) k/uL Sodium (137-145) mmol/L Potassium (3.5-5.1) mmol/L Chloride (98-107) mmol/L Carbon Dioxide (22-30) mmol/L Anion Gap mmol/L BUN (7-17) mg/dL Creatinine (0.52-1.04) mg/dL Est GFR (CKD-EPI)AfAm (>60 ml/min/1.73 sqM) Est GFR (CKD-EPI)NonAf (>60 ml/min/1.73 sqM) Glucose (74-99) mg/dL Calcium (8.4-10.2) mg/dL Total Bilirubin (0.2-1.3) mg/dL AST (14-36) U/L ALT (4-34) U/L Alkaline Phosphatase (38-126) U/L Total Protein (6.3-8.2) g/dL Albumin (3.5-5.0) g/dL HCG, Quant mIU/mL Urine Color Light Yellow Urine Appearance Cloudy H (Clear) Urine pH 5.5 (5.0-8.0) Ur Specific [place] 1.006 (1.001-1.035) Urine Protein Negative (Negative) Urine Glucose (UA) Negative (Negative) Urine Ketones Negative (Negative) Urine Blood Moderate H (Negative) Urine Nitrite Negative (Negative) Urine Bilirubin Negative (Negative) Urine Urobilinogen <2.0 (<2.0) mg/dL Ur Leukocyte Esterase Trace H (Negative) Urine RBC <1 (0-5) /hpf Urine WBC 5 (0-5) /hpf Ur Squamous Epith Cells 3 (0-4) /hpf Urine Bacteria Rare H (None) /hpf Blood Type A Positive Blood Type Recheck No Previous Record Bld Type Recheck Status [facility] ONLY 02/10/21 Range/Units 16:45 WBC (3.8-10.6) k/uL RBC (3.80-5.40) m/uL Hgb (11.4-16.0) gm/dL Hct (34.0-46.0) % MCV (80.0-100.0) fL MCH (25.0-35.0) pg MCHC (31.0-37.0) g/dL RDW (11.5-15.5) % Plt Count (150-450) k/uL MPV Neutrophils % % Lymphocytes % % Monocytes % % Eosinophils % % Basophils % % Neutrophils # (1.3-7.7) k/uL Lymphocytes # (1.0-4.8) k/uL Monocytes # (0-1.0) k/uL Eosinophils # (0-0.7) k/uL Basophils # (0-0.2) k/uL Sodium 136 L (137-145) mmol/L Potassium 4.0 (3.5-5.1) mmol/L Chloride 105 (98-107) mmol/L Carbon Dioxide 23 (22-30) mmol/L Anion Gap 8 mmol/L BUN 11 (7-17) mg/dL Creatinine 0.40 L (0.52-1.04) mg/dL Est GFR (CKD-EPI)AfAm >90 (>60 ml/min/1.73 sqM) Est GFR (CKD-EPI)NonAf >90 (>60 ml/min/1.73 sqM) Glucose 88 (74-99) mg/dL Calcium 9.4 (8.4-10.2) mg/dL Total Bilirubin 0.4 (0.2-1.3) mg/dL AST 29 (14-36) U/L ALT 23 (4-34) U/L Alkaline Phosphatase 39 (38-126) U/L Total Protein 6.8 (6.3-8.2) g/dL Albumin 4.2 (3.5-5.0) g/dL HCG, Quant 639441.0 mIU/mL Urine Color Urine Appearance (Clear) Urine pH (5.0-8.0) Ur Specific [place] (1.001-1.035) Urine Protein (Negative) Urine Glucose (UA) (Negative) Urine Ketones (Negative) Urine Blood (Negative) Urine Nitrite (Negative) Urine Bilirubin (Negative) Urine Urobilinogen (<2.0) mg/dL Ur Leukocyte Esterase (Negative) Urine RBC (0-5) /hpf Urine WBC (0-5) /hpf Ur Squamous Epith Cells (0-4) /hpf Urine Bacteria (None) /hpf Blood Type Blood Type Recheck Bld Type Recheck Status Disposition Clinical Impression: Subchorionic hemorrhage in first trimester Disposition: HOME SELF-CARE Condition: Stable Instructions (If sedation given, give patient instructions): Subchorionic Hemorrhage (ED) Additional Instructions: Please return to the Emergency Department if symptoms worsen or any other concerns. Please follow up with your RADIOPHARMACIST as discussed. Is patient prescribed a controlled substance at d/c from ED?: No Referrals: Leatha Chahal MD [Primary Care Provider] - 1-2 days Claudia Phillips DO [Doctor of Osteopathic Medicine] - 1-2 days Time of Disposition: 17:06
[2021-02-10 15:55] LABS: Appearance,Urine Cloudy (Clear); Bacteria,Urine Rare /hpf; Bilirubin,Urine Negative (Negative); Blood,Urine Moderate (Negative); Color,Urine Light Yellow; Glucose,Urine (UA) Negative (Negative); Ketones,Urine Negative (Negative); Leukocyte Esterase,Urine Trace (Negative); Nitrite,Urine Negative (Negative); PH, Urine 5.5 (5.0-8.0); Protein,Urine Negative (Negative); RBC,Urine <1 /hpf (0-5); Specific Gravity,Urine 1.006 (1.001-1.035); Squamous Epithelial Cell,Urine 3 /hpf (0-4); Urobilinogen,Urine <2.0 mg/dL (<2.0); WBC,Urine 5 /hpf (0-5)
[2021-02-10 16:50] LABS: Basophils % (A) 1 %; Eosinophils # (A) 0.1 k/uL (0-0.7); Eosinophils % (A) 2 %; HCT 36.5 % (34.0-46.0); Lymphocytes # (A) 1.9 k/uL (1.0-4.8); Lymphocytes % (A) 36 %; MCH 30.3 pg (25.0-35.0); MCHC 32.9 g/dL (31.0-37.0); Mean Platelet Volume 8.2; Monocytes # (A) 0.5 k/uL (0-1.0); Monocytes % (A) 9 %; Neutrophils # (A) 2.8 k/uL (1.3-7.7); Neutrophils % (A) 51 %; Platelet Count 220 k/uL (150-450); RBC 3.96 m/uL (3.80-5.40); WBC 5.4 k/uL (3.8-10.6)
[2021-02-10 16:59] LABS: ALT 23 U/L (4-34); AST 29 U/L (14-36); African American GFR (CKD) >90 (>60 ml/min/1.73 sqM); Albumin 4.2 g/dL (3.5-5.0); Alkaline Phosphatase 39 U/L (38-126); Anion Gap 8 mmol/L; Blood Urea Nitrogen 11 mg/dL (7-17); Calcium 9.4 mg/dL (8.4-10.2); Carbon Dioxide 23 mmol/L (22-30); Chloride 105 mmol/L (98-107); Glucose 88 mg/dL (74-99); Non-African American GFR(CKD) >90 (>60 ml/min/1.73 sqM); Sodium 136 mmol/L (137-145); Total Bilirubin 0.4 mg/dL (0.2-1.3); Total Protein 6.8 g/dL (6.3-8.2)
--- NOTE | 2021-02-10 17:02 | US ---
EXAMINATION TYPE: Transabdominal DATE OF EXAM: 02/10/2021 4:33 PM COMPARISON: NONE CLINICAL HISTORY: 7wks, bleeding/cramping. EXAM PERFORMED: Transabdominal (TA) EXAM MEASUREMENTS: GESTATIONAL AGE / DATING Physician Established: Not yet established Dates by LMP: (8 weeks/1 days) EDC: 09-21-21 Dates by First Scan: No previous this is first scan Dates by Current Scan for: ( 7 weeks/4 days) EDC: 09-25-21 MATERNAL ANATOMY Uterus: 10.4 x 5.7 x 8.3 Right Ovary: obscured by overlying bowel gas Left Ovary: obscured by overlying bowel gas Post CDS / Adnexa: wnl Presence of free fluid: no Anechoic area measuring 2.5 x 1.4 x 2.2cm adjacent to gestational sac, possible subchorionic bleed. GESTATION / SURVEY CRL: 1.3 ( 7 weeks/4 days) Yolk Sac (normal less than 6mm): 4mm Heart Rate: 157 bpm Rhythm: Normal IUP: Viable IUP Age Appropriate Anatomy Cord Insertion: Too early to visualize Limbs: Too early to visualize Calvarium: Too early to visualize Date of LMP: 12-15-20 IMPRESSION: The ultrasound gestational age is 7 weeks and 4 days. There is small subchorionic fluid collection noted. This measures 15 mm.
[2021-02-10 17:27] VITALS: BP 96/59; PULSE 74
== END 2021-02-10 17:25 | disposition home or self-care (01) ==
LOC: EC 13:50
DX: O20.9 Hemorrhage in early pregnancy, unspecified (principal); O99.331 Smoking (tobacco) complicating pregnancy, first trimester; F17.200 Nicotine dependence, unspecified, uncomplicated; Z3A.01 Less than 8 weeks gestation of pregnancy
CPT/HCPCS: 36415; 76801; 80053; 81001; 84702; 85025; 86900; 86901; 99284

== ENCOUNTER → 2021-03-08 | Outpatient (CLI) | payer OTHER ==
--- NOTE | 2021-03-08 13:58 | US ---
EXAMINATION TYPE: Transabdominal DATE OF EXAM: 03/08/2021 12:40 PM COMPARISON: NONE CLINICAL HISTORY: Z36 f/u. Vaginal bleeding for the past few weeks, patients states bleeding stopped a few days ago. EXAM PERFORMED: Transabdominal (TA) EXAM MEASUREMENTS: GESTATIONAL AGE / DATING Dates by LMP: (11 weeks/6 days) EDC: 09/21/21 Dates by First Scan: (11 weeks/ 4 days) EDC: 09/25/21 Dates by Current Scan for: (11 weeks/6 days) EDC: 09/21/21 MATERNAL ANATOMY Uterus: 17.4 x 11.3 x 7.2 cm Right Ovary: 2.8 x 2.9 x 1.9 cm Left Ovary: 3.2 x 2.1 x 2.4 cm Post CDS / Adnexa: wnl Presence of free fluid: none Presence of corpus luteal cyst: 2.0 x 1.9 x 1.9 cm Presence of subchorionic bleed: 1.0 x 1.2 x 1.8 cm GESTATION / SURVEY CRL: 5.13 (11 weeks/6 days) MSD: 5.12 (11 weeks/4 days) Yolk Sac (normal less than 6mm): 0.48 Heart Rate: 165 bpm Rhythm: Normal IUP: Viable IUP Date of LMP: 12/15/2020 Beta HcG (if available): Not available at this time Single live IUP with small subchorionic bleed. This is not an anatomic survey. IMPRESSION: Single live intrauterine with sonographic gestational age measuring approximately 11 weeks and 6 days with small subchorionic hemorrhage.
== END | disposition home or self-care (01) ==
LOC: RADUSWWP 12:09
PROVIDERS: ATTEND Obstetrics & Gynecology
DX: O20.8 Other hemorrhage in early pregnancy (principal); Z3A.11 11 weeks gestation of pregnancy
CPT/HCPCS: 76801

== ENCOUNTER 2021-08-17 11:19 | Outpatient (CLI) | payer OTHER | END 2021-08-17 12:34 | disposition home or self-care (01) | LOC: FBPOP 11:19 | PROVIDERS: ATTEND Obstetrics & Gynecology | DX: O60.03 Preterm labor without delivery, third trimester (principal); Z3A.35 35 weeks gestation of pregnancy; Z88.1 Allergy status to other antibiotic agents | CPT/HCPCS: 59025; G0463; 99213 ==

== ENCOUNTER 2021-09-17 05:40 | Inpatient (IN) | payer OTHER ==
--- NOTE | 2021-09-16 18:37 | P.HPOB ---
History of Present Illness H&P Date: 09/16/21 Chief Complaint: Induction of labor This is a 31 y.o. female, 4, para 3, with an estimated date of confinement of 09/21/2021, estimated gestational age of 39-4/7 weeks, who presents for induction of labor. She was hospitalized for labor at 34 weeks and did receive 2 doses of celestone. She also had bleeding in her 1st trimester. Her ultrasound a week ago showed estimated weight of 8#13oz (3997 gm), greater than 90th percentile, however she does not have gestational diabetes and baby is not over 5000 gm. We did have a discussion about risks of shoulder dystocia and will be prepared at the time of her delivery. She has previous delivered an 8.5 lb infant vaginally. labs: GC/Chlamydia/Trich-neg Hepatitis B surface antigen-neg RPR-NR Rubella-immune Blood type-A+ Antibody screen-neg HIV-NR Hemoglobin-12.2 Random glucose-76 1 hr. GTT-164; 3 hr. GTT-wnl GBS-neg OB Hx: . History of 3 vaginal deliveries. Her last child delivered at 36 weeks. Pickle Pumper Hx: No hx STDs Social Hx: . Unemployed. Review of Systems Constitutional: Denies chills, Denies fever Eyes: denies blurred vision, denies pain Ears, nose, mouth and throat: Denies headache, Denies sore throat Cardiovascular: Denies chest pain, Denies shortness of breath Respiratory: Denies cough Gastrointestinal: Reports abdominal pain (contractions) Genitourinary: Reports pelvic pain, Reports Musculoskeletal: Reports low back pain Integumentary: Denies pruritus, Denies rash Neurological: Denies numbness, Denies weakness Psychiatric: Denies anxiety, Denies depression Past Medical History Past Medical History: No Reported History History of Any Multi-Drug Resistant Organisms: None Reported Past Surgical History: Tonsillectomy Additional Past Surgical History / Comment(s): wisdom teeth Past Anesthesia/Blood Transfusion Reactions: No Reported Reaction Past Psychological History: No Psychological Hx Reported Smoking Status: Never smoker Past Alcohol Use History: None Reported Past Drug Use History: None Reported - Past Family History Mother Family Medical History: No Reported History Medications and Allergies Home Medications Medication Instructions Recorded Confirmed Type Pnv,Calcium 72/Iron/Folic Acid 1 tab PO DAILY 08/14/21 08/17/21 History [ Plus Tablet] Allergies Allergy/AdvReac Type Severity Reaction Status Date / Time ceftriaxone [From Rocephin] Allergy Rash/Hives Verified 08/17/21 11:33 Exam Osteopathic Statement: *. No significant issues noted on an osteopathic structural exam other than those noted in the History and Physical/Consult. HEENT: within normal limits Heart: regular rate and rhythm Lungs: clear to auscultation bilaterally Abdomen: Cervix: 4 cm/70%/-1 heart tones: 150's by doppler Extremites: negative Devon's Assessment and Plan (1) 39 weeks gestation of Status: Acute Code(s): Z3A.39 - 39 WEEKS GESTATION OF SNOMED Code(s): 87054014 Plan: Admission for oxytocin induction of labor. Expectant management. Epidural anesthesia if desired.
[2021-09-17] MEDS ORDERED: OXYTOCIN 10 UNIT/ML 1 ML VIAL IM PRN (05:52)
[2021-09-17] MEDS ORDERED: OXYTOCIN 30 UNITS/500 ML NS 30 UNIT in SALINE 1 500ML.BAG IV SCH ×2 (05:52→11:30)
[2021-09-17] MEDS ORDERED: TERBUTALINE 1 MG/ML VIAL SQ PRN (05:52)
[2021-09-17] MEDS ORDERED: LIDOCAINE 1% (PF) 10 MG/ML (30 ML SDV) SQ PRN (05:52)
[2021-09-17] MEDS ORDERED: CARBOPROST TROMETHAMINE 250 MCG/ML 1 ML AMP IM PRN (05:52)
[2021-09-17] MEDS ORDERED: METHYLERGONOVINE 0.2 MG/ML 1 ML AMP IM PRN (05:52)
[2021-09-17] MEDS ORDERED: LIDOCAINE 1% (10MG/ML) FOR IV START INTRADERMA PRN (05:52)
[2021-09-17] MEDS: LACTATED RINGERS 1,000 ML IV SCH ×2 (06:15→10:24)
[2021-09-17 06:51] LABS: Basophils # (A) 0.1 k/uL (0-0.2); Basophils % (A) 1 %; Eosinophils # (A) 0.1 k/uL (0-0.7); Eosinophils % (A) 1 %; HCT 38.3 % (34.0-46.0); Lymphocytes # (A) 2.2 k/uL (1.0-4.8); Lymphocytes % (A) 24 %; MCH 29.6 pg (25.0-35.0); MCHC 31.3 g/dL (31.0-37.0); MCV 94.5 fL (80.0-100.0); Mean Platelet Volume 7.9; Monocytes # (A) 0.7 k/uL (0-1.0); Monocytes % (A) 8 %; Neutrophils # (A) 6.1 k/uL (1.3-7.7); Neutrophils % (A) 66 %; Platelet Count 335 k/uL (150-450); RBC 4.06 m/uL (3.80-5.40); RDW 15.2 % (11.5-15.5); WBC 9.3 k/uL (3.8-10.6)
[2021-09-17] MEDS ORDERED: BUPIVACAINE (PF) 0.25% 30 ML VIAL ONE (10:12)
[2021-09-17] MEDS ORDERED: SODIUM CHLORIDE 0.9% 100 ML BAG ONE (10:12)
[2021-09-17] MEDS ORDERED: fentaNYL (PF) 50 MCG/ML 5 ML AMP ONE (10:12)
[2021-09-17] MEDS ORDERED: ZOLPIDEM 5 MG TAB PO PRN (11:30)
[2021-09-17] MEDS ORDERED: diphenhydrAMINE 25 MG CAP PO PRN (11:30)
[2021-09-17] MEDS ORDERED: SIMETHICONE 80 MG CHEWABLE PO PRN (11:30)
[2021-09-17] MEDS ORDERED: diphenhydrAMINE 50 MG CAP PO PRN (11:30)
[2021-09-17] MEDS ORDERED: BENZOCAINE/MENTHOL SPRAY 1 GM/SPRAY AEROSOL TOPICAL PRN (11:30)
[2021-09-17] MEDS ORDERED: ACETAMINOPHEN TAB 325 MG TAB PO PRN (11:30)
[2021-09-17] MEDS ORDERED: LANOLIN CREAM 5 GM TUBE TOPICAL PRN (11:30)
[2021-09-17] MEDS ORDERED: diphenhydrAMINE 50 MG/ML 1 ML VIAL IVP PRN ×2 (11:30)
[2021-09-17] MEDS ORDERED: HYDROCORTISONE 2.5% RECTAL CREAM 30 GM TUBE RECTAL PRN (11:30)
--- NOTE | 2021-09-17 12:49 | P.PROBDLV ---
Vaginal Delivery Note - . Vaginal Delivery Note: The patient progressed to complete dilation after oxytocin induction of labor and artificial rupture membranes with clear fluid noted. She did receive epidural anesthesia. Once reaching complete, she began pushing. 's head came to a crown fairly rapidly. With one further push, the 's head delivered across the perineum followed by the anterior shoulder. Nuchal cord times one was reduced around the 's head and nose and mouth were bulb suctioned. With one further push, the remainder the easily delivered and was placed on mother's abdomen. Cord was clamped and cut and infant was taken to warmer for evaluation. A viable male infant was noted with scores of 7 at 1 minute and 9 at 5 minutes and infant weight was 10 lbs. 4 oz. Placenta delivered shortly thereafter, intact, with a three-vessel cord. Uterus contracted fairly well after oxytocin was given and uterine massage was carried out. Inspection of the perineum revealed no perineal lacerations. Estimated blood loss is approximately 100 mL's. Both mother and infant are in stable condition.
[2021-09-17] MEDS: IBUPROFEN 600 MG TAB PO PRN ×2 (15:42→21:19)
[2021-09-17] MEDS: SENNOSIDES-DOCUSATE SODIUM 1 EACH TAB PO SCH (21:19)
[2021-09-18] MEDS: IBUPROFEN 600 MG TAB PO PRN ×4 (02:53→23:47)
[2021-09-18 07:01] LABS: Basophils % (A) 0 %; Eosinophils # (A) 0.1 k/uL (0-0.7); Eosinophils % (A) 1 %; HCT 33.1 % (34.0-46.0); HGB 10.6 gm/dL (11.4-16.0); Lymphocytes % (A) 22 %; MCH 29.8 pg (25.0-35.0); MCHC 31.8 g/dL (31.0-37.0); MCV 93.8 fL (80.0-100.0); Mean Platelet Volume 7.9; Monocytes # (A) 0.6 k/uL (0-1.0); Monocytes % (A) 7 %; Neutrophils # (A) 6.3 k/uL (1.3-7.7); Neutrophils % (A) 69 %; Platelet Count 268 k/uL (150-450); RBC 3.53 m/uL (3.80-5.40); RDW 15.2 % (11.5-15.5); WBC 9.2 k/uL (3.8-10.6)
[2021-09-18] MEDS: SENNOSIDES-DOCUSATE SODIUM 1 EACH TAB PO SCH ×2 (08:19→19:40)
--- NOTE | 2021-09-18 12:27 | P.DS ---
Providers Date of admission: 09/17/21 05:40 Expected date of discharge: 09/18/21 Attending physician: Claudia Phillips Primary care physician: Stated None - Discharge Diagnosis(es) (1) 39 weeks gestation of Current Visit: No Status: Acute Hospital Course: This is a 31-year-old female 4 para 3 at 39-3/7 weeks who presented for induction of labor. She delivered vaginally a viable male infant with scores of 7 at 1 minute and 9 at 5 minutes and infant weight of 10 lbs. 4 oz. course has been uncomplicated. Lochia is decreasing. Pain is well- controlled. Vital signs are stable. Abdomen is soft with fundus firm and nontender. Extremities show negative Homans. Impression is status post vaginal delivery day #1. Plan is to discharge home later today. Routine instructions are given. She has a breast pump at home. She will be given a prescription for ibuprofen. She is advised to call the office if she has any further questions or concerns prior to her appointment time. Procedures: Oxytocin induction of labor Spontaneous vaginal delivery of a viable male infant on 09/17/2021 Patient Condition at Discharge: Stable Plan - Discharge Summary New Discharge Prescriptions: No Action Pnv,Calcium 72/Iron/Folic Acid [ Plus Tablet] 1 tab PO DAILY Discharge Medication List Pnv,Calcium 72/Iron/Folic Acid [ Plus Tablet] 1 tab PO DAILY 08/14/21 [History] Follow up Appointment(s)/Referral(s): Claudia Phillips DO [Doctor of Osteopathic Medicine] - 10/30/21 3:30 pm Activity/Diet/Wound Care/Special Instructions: Instructions 1. Do not begin any exercise program for 3 weeks. 2. Do not resume sexual relations for 3 weeks or longer if uncomfortable. 3. You may take tub baths or showers at any time. 4. You may use tampons if desired after 3 weeks. 5. Keep the area of episiotomy (stitches) clean and dry. 6. If you are not nursing, wear a good fitting, supportive bra during the day and limit fluid intake for at least 1 week to prevent breast engorgement. 7. Call the office, [phone], within the next week to make appointment for your 6 week checkup if it has not already been made. 8. Report any of the following occurrences to the doctor promptly: a. Heavy, excessive bleeding b. Chills, fever c. Burning or frequency of urination d. Pain or redness and breasts if nursing e. Increasing pain or swelling in episiotomy (stitches). In addition to the above instructions, the following additional should be followed: 1. No heavy lifting or straining (exercising) until after 6 week checkup. 2. Keep abdominal incision clean and dry: You may wear a dressing if more comfortable. 3. Make office appointment for 10 days after going home or as instructed by her doctor. Discharge Disposition: HOME SELF-CARE
[2021-09-19 00:52] VITALS: RESP 16
[2021-09-19 08:55] VITALS: BP 99/58; PULSE 64; TEMP 98.4
[2021-09-19] MEDS: SENNOSIDES-DOCUSATE SODIUM 1 EACH TAB PO SCH (16:29)
== END 2021-09-19 17:22 | disposition home or self-care (01) | DRG 807 ==
LOC: 4FBP 05:40
PROVIDERS: ADMIT Obstetrics & Gynecology; ATTEND Obstetrics & Gynecology
PROC: 10E0XZZ Delivery of Products of Conception, External Approach (ICD-10-PCS; principal; 2021-09-17)
PROC: 3E033VJ Introduction of Other Hormone into Peripheral Vein, Percutaneous Approach (ICD-10-PCS; 2021-09-17)
PROC: 10907ZC Drainage of Amniotic Fluid, Therapeutic from Products of Conception, Via Natural or Artificial Opening (ICD-10-PCS; 2021-09-17)
PROC: 4A0HXCZ Measurement of Products of Conception, Cardiac Rate, External Approach (ICD-10-PCS; 2021-09-17)
DX: O69.81X0 Labor and delivery complicated by cord around neck, without compression, not applicable or unspecified (principal); Z37.0 Single live birth; Z3A.39 39 weeks gestation of pregnancy; Z88.1 Allergy status to other antibiotic agents
CPT/HCPCS: 85025; 86850; 86900; 86901

== ENCOUNTER 2021-11-15 11:00 | Emergency (ER) | payer OTHER ==
[2021-11-15 11:05] VITALS: TEMP 100
[2021-11-15] MEDS ORDERED: IBUPROFEN 800 MG TAB PO STA (11:26)
[2021-11-15] MEDS ORDERED: ONDANSETRON 4 MG/2 ML VIAL IVP STA (11:29)
--- NOTE | 2021-11-15 11:35 | ED ---
General Adult HPI - General Chief complaint: Recheck/Abnormal Lab/Rx Stated complaint: Mastitis Time Seen by Provider: 11/15/21 11:06 Source: patient, RN notes reviewed Mode of arrival: ambulatory Limitations: no limitations - History of Present Illness Initial comments: This is a 31-year-old female who presents to the emergency department for mastitis. She had a vaginal delivery on 09/17/2021 and has since been breast- feeding. She has gone through 2 courses of amoxicillin as prescribed by Dr. Phillips, her MECHANICAL DRAFTER. Because the infection is not improving and she continues to have pain and fevers, she was instructed to come to the emergency department for further evaluation. I spoke with Dr. Phillips, who states that the infection has gone away after each course of amoxicillin and then returns. At this point, she is unsure if the patient will need admission versus outpatient management with an alternative antibiotic. Denies any discharge from the nipples. She does continue to breast-feed. She has associated nausea but no vomiting. Denies any chills, sore throat, cough, dyspnea, chest pain, palpitations, abdominal pain, vomiting, diarrhea, back pain, or headaches. Onset/Timin -: month(s) Associated Symptoms: fever/chills, nausea/vomiting - Related Data Home Medications Medication Instructions Recorded Confirmed Vit No.180/Iron/Folic 1 tab PO DAILY 08/14/21 11/15/21 [ Plus Tablet] Loratadine [Claritin] 10 mg PO DAILY 11/15/21 11/15/21 Previous Rx's Medication Instructions Recorded Amoxic-Pot Clav 875-125Mg 1 tab PO BID 10 Days #20 tab 11/15/21 [Augmentin 875-125] Allergies Allergy/AdvReac Type Severity Reaction Status Date / Time ceftriaxone [From Rocephin] Allergy Rash/Hives Verified 11/15/21 11:32 Review of Systems ROS Statement: Those systems with pertinent positive or pertinent negative responses have been documented in the HPI. ROS Other: All systems not noted in ROS Statement are negative. Past Medical History Past Medical History: No Reported History Additional Past Medical History / Comment(s): OB history: first two pregnancies were vaginal deliveries at 39 and 40 weeks. This is her third and she has had care with Dr. Phillips since 8 weeks gestation. Blood type is A+, antibodies negative, rubella immune, RPR nonreactive, hepatitis B negative, HIV nonreactive, toxoplasmosis negative, GBS negative. History of Any Multi-Drug Resistant Organisms: None Reported Past Surgical History: Tonsillectomy Additional Past Surgical History / Comment(s): wisdom teeth Past Anesthesia/Blood Transfusion Reactions: No Reported Reaction Past Psychological History: No Psychological Hx Reported Smoking Status: Never smoker Past Alcohol Use History: None Reported Past Drug Use History: None Reported - Past Family History Mother Family Medical History: No Reported History General Exam Limitations: no limitations General appearance: alert, in distress Head exam: Present: atraumatic, normocephalic, normal inspection Respiratory exam: Present: normal lung sounds bilaterally. Absent: respiratory distress, wheezes, rales, rhonchi, stridor Cardiovascular Exam: Present: regular rate, normal rhythm, normal heart sounds. Absent: systolic murmur, diastolic murmur, rubs, gallop, clicks Neurological exam: Present: alert, oriented X3, CN II-XII intact Psychiatric exam: Present: normal affect, normal mood Skin exam: Present: other (Swelling, erythema, and tenderness of the bilateral breasts, most prominent around the areolas. No nipple discharge. No palpable abscess.) Course Vital Signs 11/15/21 11/15/21 11:02 13:48 Temperature 100 F H Pulse Rate 102 H 73 Respiratory 16 18 Rate Blood Pressure 128/81 98/52 O2 Sat by Pulse 99 96 Oximetry Medical Decision Making - Medical Decision Making This is a 31-year-old female who presents to the emergency department for bilateral mastitis. Lab work reveals no evidence of leukocytosis. Ultrasound did not reveal any signs of an abscess or drainable fluid collection, however it did confirm the bilateral mastitis. She was treated with ibuprofen for the fever. Given that she has tried 2 courses of amoxicillin, we'll try an alternative antibiotic. Our first choice was Keflex, however she does have a noted allergy to ceftriaxone. Given the concern for possible reaction, we'll avoid that at this time. Augmentin was prescribed instead to be taken for 10 days. Advised that there is a minor risk of irritability, diarrhea, and rash in an infant with breast-feeding, however it should not pose any serious harm or life threatening issues. Advised to continue with ibuprofen and Tylenol as ne eded for pain and fevers. She should also continue breast-feeding and applying warm compresses, massage, and wearing supportive bras. Return precautions reviewed in depth, the patient is instructed to return to the emergency department with any new, worsening, or concerning symptoms. Patient verbalized understanding. This case was discussed in detail with the attending ED physician. Presentation, findings, and treatment plan discussed in detail as well. - Lab Data Result diagrams: 11/15/21 12:00 11/15/21 12:00 Lab Results 11/15/21 11/15/21 11/15/21 Range/Units 11:44 11:44 12:00 WBC 9.4 (3.8-10.6) k/uL RBC 4.53 (3.80-5.40) m/uL Hgb 13.6 D (11.4-16.0) gm/dL Hct 42.8 (34.0-46.0) % MCV 94.5 (80.0-100.0) fL MCH 29.9 (25.0-35.0) pg MCHC 31.7 (31.0-37.0) g/dL RDW 13.9 (11.5-15.5) % Plt Count 287 (150-450) k/uL MPV 7.7 Neutrophils % 77 % Lymphocytes % 13 % Monocytes % 8 % Eosinophils % 2 % Basophils % 0 % Neutrophils # 7.2 (1.3-7.7) k/uL Lymphocytes # 1.2 (1.0-4.8) k/uL Monocytes # 0.7 (0-1.0) k/uL Eosinophils # 0.1 (0-0.7) k/uL Basophils # 0.0 (0-0.2) k/uL Sodium (137-145) mmol/L Potassium (3.5-5.1) mmol/L Chloride (98-107) mmol/L Carbon Dioxide (22-30) mmol/L Anion Gap mmol/L BUN (7-17) mg/dL Creatinine (0.52-1.04) mg/dL Est GFR (CKD-EPI)AfAm (>60 ml/min/1.73 sqM) Est GFR (CKD-EPI)NonAf (>60 ml/min/1.73 sqM) Glucose (74-99) mg/dL Plasma Lactic Acid Gui (0.7-2.0) mmol/L Calcium (8.4-10.2) mg/dL Total Bilirubin (0.2-1.3) mg/dL AST (14-36) U/L ALT (4-34) U/L Alkaline Phosphatase (38-126) U/L Total Protein (6.3-8.2) g/dL Albumin (3.5-5.0) g/dL Urine Color Colorless Urine Appearance Clear (Clear) Urine pH 7.5 (5.0-8.0) Ur Specific Pindall 1.006 (1.001-1.035) Urine Protein Negative (Negative) Urine Glucose (UA) Negative (Negative) Urine Ketones Negative (Negative) Urine Blood Negative (Negative) Urine Nitrite Negative (Negative) Urine Bilirubin Negative (Negative) Urine Urobilinogen <2.0 (<2.0) mg/dL Ur Leukocyte Esterase Large H (Negative) Urine WBC 35 H (0-5) /hpf Ur Squamous Epith Cells 1 (0-4) /hpf Urine Mucus Rare H (None) /hpf Urine HCG, Qual Not Detected (Not Detectd) 11/15/21 11/15/21 Range/Units 12:00 12:00 WBC (3.8-10.6) k/uL RBC (3.80-5.40) m/uL Hgb (11.4-16.0) gm/dL Hct (34.0-46.0) % MCV (80.0-100.0) fL MCH (25.0-35.0) pg MCHC (31.0-37.0) g/dL RDW (11.5-15.5) % Plt Count (150-450) k/uL MPV Neutrophils % % Lymphocytes % % Monocytes % % Eosinophils % % Basophils % % Neutrophils # (1.3-7.7) k/uL Lymphocytes # (1.0-4.8) k/uL Monocytes # (0-1.0) k/uL Eosinophils # (0-0.7) k/uL Basophils # (0-0.2) k/uL Sodium 137 (137-145) mmol/L Potassium 4.3 (3.5-5.1) mmol/L Chloride 102 (98-107) mmol/L Carbon Dioxide 28 (22-30) mmol/L Anion Gap 7 mmol/L BUN 17 (7-17) mg/dL Creatinine 0.68 (0.52-1.04) mg/dL Est GFR (CKD-EPI)AfAm >90 (>60 ml/min/1.73 sqM) Est GFR (CKD-EPI)NonAf >90 (>60 ml/min/1.73 sqM) Glucose 85 (74-99) mg/dL Plasma Lactic Acid Gui 1.0 (0.7-2.0) mmol/L Calcium 9.9 (8.4-10.2) mg/dL Total Bilirubin 0.4 (0.2-1.3) mg/dL AST 34 (14-36) U/L ALT 33 (4-34) U/L Alkaline Phosphatase 91 (38-126) U/L Total Protein 8.0 (6.3-8.2) g/dL Albumin 4.9 (3.5-5.0) g/dL Urine Color Urine Appearance (Clear) Urine pH (5.0-8.0) Ur Specific Pindall (1.001-1.035) Urine Protein (Negative) Urine Glucose (UA) (Negative) Urine Ketones (Negative) Urine Blood (Negative) Urine Nitrite (Negative) Urine Bilirubin (Negative) Urine Urobilinogen (<2.0) mg/dL Ur Leukocyte Esterase (Negative) Urine WBC (0-5) /hpf Ur Squamous Epith Cells (0-4) /hpf Urine Mucus (None) /hpf Urine HCG, Qual (Not Detectd) - Radiology Data Radiology results: report reviewed, image reviewed Disposition Clinical Impression: Mastitis Disposition: HOME SELF-CARE Instructions (If sedation given, give patient instructions): Mastitis (ED) Additional Instructions: Return to the emergency department with any new, worsening, or concerning symptoms. Take the antibiotic as prescribed for 10 days. Continue breast- feeding. Take ibuprofen and Tylenol as needed for pain relief and fevers. Continue with warm compresses and massage. Make sure that you wear a supportive bra. Follow-up with Dr. Phillips as scheduled. Prescriptions: Amoxic-Pot Clav 875-125Mg [Augmentin 875-125] 1 tab PO BID 10 Days #20 tab Is patient prescribed a controlled substance at d/c from ED?: No Referrals: Leatha Chahal MD [Primary Care Provider] - 1-2 days
[2021-11-15 11:58] LABS: Appearance,Urine Clear (Clear); Bilirubin,Urine Negative (Negative); Blood,Urine Negative (Negative); Color,Urine Colorless; Glucose,Urine (UA) Negative (Negative); Ketones,Urine Negative (Negative); Leukocyte Esterase,Urine Large (Negative); Mucus,Urine Rare /hpf; Nitrite,Urine Negative (Negative); PH, Urine 7.5 (5.0-8.0); Protein,Urine Negative (Negative); Specific Gravity,Urine 1.006 (1.001-1.035); Squamous Epithelial Cell,Urine 1 /hpf (0-4); Urobilinogen,Urine <2.0 mg/dL (<2.0); WBC,Urine 35 /hpf (0-5)
[2021-11-15 12:45] LABS: Basophils % (A) 0 %; Eosinophils # (A) 0.1 k/uL (0-0.7); Eosinophils % (A) 2 %; HCT 42.8 % (34.0-46.0); Lymphocytes # (A) 1.2 k/uL (1.0-4.8); Lymphocytes % (A) 13 %; MCH 29.9 pg (25.0-35.0); MCHC 31.7 g/dL (31.0-37.0); MCV 94.5 fL (80.0-100.0); Mean Platelet Volume 7.7; Monocytes # (A) 0.7 k/uL (0-1.0); Monocytes % (A) 8 %; Neutrophils # (A) 7.2 k/uL (1.3-7.7); Neutrophils % (A) 77 %; Platelet Count 287 k/uL (150-450); RBC 4.53 m/uL (3.80-5.40); RDW 13.9 % (11.5-15.5); WBC 9.4 k/uL (3.8-10.6)
[2021-11-15 12:46] LABS: HGB 13.6 gm/dL (11.4-16.0)
[2021-11-15 12:50] LABS: ALT 33 U/L (4-34); AST 34 U/L (14-36); African American GFR (CKD) >90 (>60 ml/min/1.73 sqM); Albumin 4.9 g/dL (3.5-5.0); Alkaline Phosphatase 91 U/L (38-126); Anion Gap 7 mmol/L; Blood Urea Nitrogen 17 mg/dL (7-17); Calcium 9.9 mg/dL (8.4-10.2); Carbon Dioxide 28 mmol/L (22-30); Chloride 102 mmol/L (98-107); Glucose 85 mg/dL (74-99); Non-African American GFR(CKD) >90 (>60 ml/min/1.73 sqM); Potassium 4.3 mmol/L (3.5-5.1); Sodium 137 mmol/L (137-145); Total Bilirubin 0.4 mg/dL (0.2-1.3)
--- NOTE | 2021-11-15 12:51 | USB ---
Technique: Method: Whole Breast Handheld. Findings: The whole breast of both breasts, the axilla of both breasts and the retroareolar of both breasts were scanned. No solid or cystic masses are identified.. Bilateral inflamed tissue noted left greater than right likely in the basis of mastoiditis. No drainable collection seen. Overall Assessment: Benign, BI-RAD 2 Management: Screening Mammogram of both breasts at age 39. A clinical breast exam by your physician is recommended on an annual basis and results should be correlated with mammographic findings. Electronically signed and approved by: Rao Bryan M.D. Radiologis
[2021-11-15 13:50] VITALS: BP 98/52; PULSE 73; RESP 18
== END 2021-11-15 13:48 | disposition home or self-care (01) ==
LOC: EC 11:00
DX: O91.22 Nonpurulent mastitis associated with the puerperium (principal); O90.89 Other complications of the puerperium, not elsewhere classified; R11.2 Nausea with vomiting, unspecified; Z88.8 Allergy status to other drugs, medicaments and biological substances; R50.9 Fever, unspecified
CPT/HCPCS: 36415; 80053; 83605; 85025; 81001; 81025; 87040; 87086; 76641; 99284; 96374; J2405

== ENCOUNTER 2021-12-09 06:49 | Day surgery (SDC) | payer OTHER ==
[2021-12-05 08:30] VITALS: BMI 22.1
--- NOTE | 2021-12-08 09:38 | P.HPOB ---
History of Present Illness H&P Date: 12/08/21 Chief Complaint: Family planning This is a 31 y.o. female, 4, para 4, who presents for laparoscopic bilateral tubal ligation via fulgaration for family planning. She recently delivered her last child and requests permanent sterilization. She has signed [facility] papers over 30 days ago. OB Hx: . History of 4 vaginal deliveries. 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 Works part-time as a cook. Review of Systems Constitutional: Denies chills, Denies fever Eyes: denies blurred vision, denies pain Ears, nose, mouth and throat: Denies headache, Denies sore throat Cardiovascular: Denies chest pain, Denies shortness of breath Respiratory: Denies cough Gastrointestinal: Denies abdominal pain, Denies diarrhea, Denies nausea, Denies vomiting Genitourinary: Denies dysuria, Denies hematuria Musculoskeletal: Denies myalgias Integumentary: Denies pruritus, Denies rash Neurological: Denies numbness, Denies weakness Psychiatric: Denies anxiety, Denies depression Past Medical History Past Medical History: No Reported History History of Any Multi-Drug Resistant Organisms: None Reported Past Surgical History: Tonsillectomy Additional Past Surgical History / Comment(s): wisdom teeth Past Anesthesia/Blood Transfusion Reactions: No Reported Reaction Past Psychological History: No Psychological Hx Reported Smoking Status: Never smoker Past Alcohol Use History: None Reported Past Drug Use History: None Reported - Past Family History Mother Family Medical History: No Reported History Medications and Allergies Home Medications Medication Instructions Recorded Confirmed Type No Known Home Medications 12/05/21 12/09/21 History Allergies Allergy/AdvReac Type Severity Reaction Status Date / Time ceftriaxone [From Rocephin] Allergy Rash/Hives Verified 12/09/21 07:19 Exam Osteopathic Statement: *. No significant issues noted on an osteopathic structural exam other than those noted in the History and Physical/Consult. HEENT: within normal limits Heart: regular rate and rhythm Lungs: clear to auscultation bilaterally Abdomen: soft, non-tender Pelvic: uterus small anteverted, non-tender, no adnexal masses or tenderness Extremities: neg. Devon's. Assessment and Plan (1) Family planning Current Visit: No Status: Acute Code(s): Z30.09 - ENCOUNTER FOR OTH GENERAL CNSL AND ADVICE ON CONTRACEPTION SNOMED Code(s): 227895361 Plan: Proceed with laparoscopic bilateral tubal ligation via fulgaration. I have discussed the risks, benefits, and alternative therapies for the above- mentioned procedure and for both sedation/anesthesia as well as necessary blood products administration, if indicated, as they pertain to this patient. The patient has indicated her understanding and acceptance of the risks and procedures discussed.
[~2021-12-09 06:49] MED LIST: Pre Op ABX Message 1 EACH MISC MISCELLANE ONE
[2021-12-09] MEDS ORDERED: HYDROmorphone 0.5 MG/0.5 ML SYRINGE IVP PRN (07:08)
[2021-12-09] MEDS ORDERED: LACTATED RINGERS 1,000 ML IV SCH (07:08)
[2021-12-09] MEDS ORDERED: MIDAZOLAM 2 MG/2 ML VIAL IV PRN (07:08)
[2021-12-09] MEDS ORDERED: DEXAMETHASONE SOD PHOSPHATE 4 MG/ML 1 ML VIAL IV ONE (07:08)
[2021-12-09] MEDS ORDERED: ONDANSETRON 4 MG/2 ML VIAL IVP ONE (07:08)
[2021-12-09] MEDS ORDERED: SCOPOLAMINE 1 MG/72 HR PATCH TRANSDERM ONE (07:08)
[2021-12-09] MEDS ORDERED: DEXAMETHASONE SOD PHOSPHATE 10 MG/ML 1 ML VIAL ONE (08:21)
[2021-12-09] MEDS ORDERED: KETOROLAC 15 MG/ML 1 ML VIAL ONE (08:21)
[2021-12-09] MEDS ORDERED: GLYCOPYRROLATE 0.2 MG/ML 2 ML VIAL ONE (08:21)
[2021-12-09] MEDS ORDERED: PROPOFOL 10 MG/ML 20 ML VIAL IV ONE (08:21)
[2021-12-09] MEDS ORDERED: SUCCINYLCHOLINE CHLORIDE 200 MG/10 ML VIAL IV ONE (08:21)
[2021-12-09] MEDS ORDERED: LIDOCAINE 2% INJ 20 MG/ML (2 ML VIAL) ONE (08:21)
[2021-12-09] MEDS ORDERED: ROCURONIUM 10 MG/ML (5 ML VIAL) IV ONE (08:21)
[2021-12-09] MEDS ORDERED: fentaNYL (PF) 50 MCG/ML 2 ML AMP ONE (08:21)
[2021-12-09] MEDS ORDERED: MIDAZOLAM 2 MG/2 ML VIAL ONE (08:21)
[2021-12-09] MEDS ORDERED: HYDROmorphone (PF) 1 MG/ML ONE (08:21)
[2021-12-09] MEDS ORDERED: NEOSTIGMINE 1 MG/ML 10 ML VIAL ONE (08:21)
[2021-12-09] MEDS ORDERED: BUPIVACAINE (PF) 0.25% 30 ML VIAL SQ ONE (09:18)
--- NOTE | 2021-12-09 09:22 | P.OP ---
Date of Procedure: 12/09/21 Preoperative Diagnosis: Family planning Postoperative Diagnosis: Same Procedure(s) Performed: Laparoscopic bilateral tubal ligation via fulguration Anesthesia: MARIANA Surgeon: Claudia Phillips Estimated Blood Loss (ml): 10 Pathology: none sent Condition: stable Disposition: same day Indications for Procedure: This is a 31 y.o. female, 4, para 4, who presents for laparoscopic bilateral tubal ligation via fulgaration for family planning. She recently delivered her last child and requests permanent sterilization. She has signed [facility] papers over 30 days ago. Operative Findings: Uterus is retroverted and sounded to 8 cm. Normal uterus tubes and ovaries are noted. Appendix and gallbladder are both visualized and appear normal. Description of Procedure: The patient is taken to the operating room where she is placed in the dorsal lithotomy position. She is prepped and draped in the normal sterile fashion. Examination is performed under anesthesia. Uterus is found to be in a retroverted position. No adnexal masses were palpated. Next a bivalve speculum was placed in the patient's vagina. An Allis clamp was used to grasp the anterior lip of the cervix. The uterus was sounded to 8 cm. The kroner uterine manipulator was then inserted through the cervix and the balloon was inflated. The Allis clamp is removed speculum was removed gloves were changed and attention was turned to the abdomen. A small stab incision was made with a scalpel in the infraumbilical fold. A 5 mm disposable bladeless trocar was then inserted into the peritoneal cavity under direct visualization. Once inside, p neumoperitoneum was achieved with CO2 gas. The insert was removed and the camera was placed. Intraperitoneal placement was confirmed. No bleeding was noted. Next the patient was placed in Trendelenburg position. A small stab incision was made suprapubically and a 5 mm disposable bladeless trocar was inserted into the peritoneal cavity under direct visualization. Once inside pelvic contents were inspected. Next a bipolar Kleppinger instrument was placed through the inferior trocar and the midportion of each tube was brought away from other structures and completely fulgurated on approximate 2-3 cm segment of each tube. Excellent hemostasis was noted. Pictures were taken. Pneumoperitoneum was released after the inferior trocar was removed under direct visualization. The upper trocar was then removed. The skin incisions were then closed with 4-0 Vicryl suture in a subcuticular fashion. Incisions were then injected with quarter percent Marcaine. Approximately 6 mL were used. Next the kroner uterine manipulator was removed. Minimal bleeding was noted. All sponge and needle counts are correct. The patient is then taken to recovery room in stable condition.
[2021-12-09 09:46] VITALS: TEMP 96.8
[2021-12-09 10:48] VITALS: RESP 16
[2021-12-09 11:24] VITALS: BP 98/52; PULSE 58
== END 2021-12-09 11:51 | disposition home or self-care (01) ==
LOC: OR 06:49
PROVIDERS: ATTEND Obstetrics & Gynecology
DX: Z30.2 Encounter for sterilization (principal); Z88.1 Allergy status to other antibiotic agents
CPT/HCPCS: 81025; 58670; J2250; J0330; J1100 ×2; J2710; J2405; J3010; J1170 ×2; J1885; J2704; J1790; J2001

== ENCOUNTER → 2022-03-28 | Outpatient (CLI) | payer OTHER ==
--- NOTE | 2022-03-28 11:43 | XR ---
EXAMINATION TYPE: XR lumbosacral spine 5 views DATE OF EXAM: 03/28/2022 Comparison: None Clinical History: 31-year-old female M54.50 Findings: 5 lumbar type vertebral bodies. No pars interarticularis defect. Vertebral body heights are preserved and alignment is maintained. 3 mm calcific density right mid abdomen, possible renal calculus. Moder ate overall snowboarding. Impression: No vertebral compression collapse or malalignment. Possible 3 mm right renal calculus.
== END | disposition home or self-care (01) ==
LOC: RADXRMAIN 09:54
PROVIDERS: ATTEND Nurse Practitioner Family
DX: M54.50 Low back pain, unspecified (principal)
CPT/HCPCS: 72110

== ENCOUNTER 2022-05-01 18:25 | Emergency (ER) | payer OTHER ==
[2022-05-01 18:37] VITALS: BP 124/68; PULSE 79; RESP 16; TEMP 97.9
[2022-05-01 19:29] LABS: Appearance,Urine Cloudy (Clear); Bacteria,Urine Rare /hpf; Bilirubin,Urine Negative (Negative); Blood,Urine Large (Negative); Color,Urine Yellow; Glucose,Urine (UA) Negative (Negative); Ketones,Urine Trace (Negative); Leukocyte Esterase,Urine Large (Negative); Mucus,Urine Many /hpf; Nitrite,Urine Positive (Negative); Protein,Urine 1+ (Negative); RBC,Urine >182 /hpf (0-5); Specific Gravity,Urine 1.024 (1.001-1.035); Squamous Epithelial Cell,Urine 2 /hpf (0-4); Urobilinogen,Urine <2.0 mg/dL (<2.0); WBC,Urine >182 /hpf (0-5)
[2022-05-01] MEDS ORDERED: IBUPROFEN 600 MG STARTER PACK 4 TAB BTL PO STA (20:05)
[2022-05-01] MEDS ORDERED: NITROFURANTOIN MONOHYD/M-CRYST 100 MG CAP PO STA (20:05)
--- NOTE | 2022-05-01 20:07 | ED ---
Female Urogenital HPI - General Chief complaint: Urogenital Stated complaint: Abd pain-Sent by PCP Time Seen by Provider: 05/01/22 19:55 Source: patient, RN notes reviewed Mode of arrival: ambulatory Limitations: no limitations - History of Present Illness Initial comments: This is a 31-year-old female who presents to the emergency department for urinary symptoms. Over the last 2 days, she has had burning with urination, urinary frequency, and urinary urgency. She made an appointment with her primary care provider, but is unable to be seen until tomorrow, and she is worried that she cannot make it this long. She's been using warm packs at home with no relief. She is breast-feeding after giving in August of this year. Denies any fevers, chills, sore throat, cough, dyspnea, chest pain, palpitations, nausea, vomiting, diarrhea, back pain, or headaches. - Related Data Previous Rx's Medication Instructions Recorded HYDROcodone/APAP 5-325MG [[place] 1 tab PO Q6HR PRN 3 Days #12 tab 12/09/21 5-325] Nitrofurantoin Monohyd/M-Cryst 100 mg PO Q12HR 5 Days #10 cap 05/01/22 [Macrobid] Allergies Allergy/AdvReac Type Severity Reaction Status Date / Time ceftriaxone [From Rocephin] Allergy Rash/Hives Verified 12/09/21 07:19 Review of Systems ROS Statement: Those systems with pertinent positive or pertinent negative responses have been documented in the HPI. ROS Other: All systems not noted in ROS Statement are negative. Past Medical History Past Medical History: No Reported History Additional Past Medical History / Comment(s): OB history: first two pregnancies were vaginal deliveries at 39 and 40 weeks. This is her third and she has had care with Dr. Phillips since 8 weeks gestation. Blood type is A+, antibodies negative, rubella immune, RPR nonreactive, hepatitis B negative, HIV nonreactive, toxoplasmosis negative, GBS negative. History of Any Multi-Drug Resistant Organisms: None Reported Past Surgical History: Tonsillectomy, Tubal Ligation Additional Past Surgical History / Comment(s): wisdom teeth Past Anesthesia/Blood Transfusion Reactions: No Reported Reaction Past Psychological History: No Psychological Hx Reported Smoking Status: Never smoker Past Alcohol Use History: None Reported Past Drug Use History: None Reported - Past Family History Mother Family Medical History: No Reported History General Exam Limitations: no limitations General appearance: alert, in no apparent distress Head exam: Present: atraumatic, normocephalic, normal inspection Respiratory exam: Present: normal lung sounds bilaterally. Absent: respiratory distress, wheezes, rales, rhonchi, stridor Cardiovascular Exam: Present: regular rate, normal rhythm, normal heart sounds. Absent: systolic murmur, diastolic murmur, rubs, gallop, clicks GI/Abdominal exam: Present: soft, normal bowel sounds. Absent: distended, tenderness, guarding, rebound, rigid Neurological exam: Present: alert, oriented X3, CN II-XII intact Psychiatric exam: Present: normal affect, normal mood Skin exam: Present: warm, dry, intact, normal color. Absent: rash Course Vital Signs 05/01/22 18:34 Temperature 97.9 F Pulse Rate 79 Respiratory 16 Rate Blood Pressure 124/68 O2 Sat by Pulse 100 Oximetry Medical Decision Making - Medical Decision Making This is a 31-year-old female who presents to the emergency department for dysuria. Was pt. sent in by a medical professional or institution? @ -No Did you speak to anyone other than the patient for history? @ -No Did you review nursing and triage notes? @ -Agree, accurate with regards to the patient's symptoms. Were old charts reviewed? @ -No Differential Diagnosis? @ -Differential Abdominal Pain Women: Appendicitis, Cholecystitis, diverticulosis, ischemic bowel, pancreatitis, hepatitis, UTI, gastroenteritis, AAA, incarcerated hernia, bowel obstruction, constipation, inflammatory bowel, hepatitis, peptic ulcer disease, splenic infar ction, perforated viscus, vulvitis, ovarian torsion, PID, kidney stone, placenta abruption, this is not meant to be an all-inclusive list What testing was considered but not performed? (CT, X-rays, U/S, labs)? Why? @ None What meds were considered but not given? Why? @ -None Did you discuss the management of the patient with other professionals? @ -No Did you reconcile home meds? @ -No Was smoking cessation discussed for >3mins.? @ -No Was critical care preformed (if so, how long)? @ -No Were there social determinants of health that impacted care today? How? (Homelessness, low income, unemployed, alcoholism, drug addiction, transportation, low edu. Level, literacy, decrease access to med. care, fpc, rehab)? @ -No Was there de-escalation of care discussed even if they declined? (Discuss DNR or withdrawal of care, Hospice)? @ -No What co-morbidities impacted this encounter? (DM, HTN, Smoking, COPD, CAD, Cancer, CVA, Hep., AIDS, mental health diagnosis, sleep apnea, morbid obesity)? @ -None Was patient admitted / discharged? @ -Discharged. Urinalysis consistent with infection. Prescription for Macrobid provided and the first dose was administered in the emergency department. Advised that Macrobid is safe in . Starter pack for ibuprofen provided as well. She is instructed to alternate with ibuprofen and Tylenol as needed for pain relief. Advised she avoid [id number] AZO due t o some risks associated with breast-feeding. Drug Therapy requiring intensive monitoring for toxicity (Heparin, Nitro, Insulin, Cardizem)? @ -None Were any procedures done? @ -None Diagnosis/symptom? @ -UTI Acute, or Chronic, or Acute on Chronic? @ -Acute Uncomplicated (without systemic symptoms) or Complicated (systemic symptoms)? @ -Uncomplicated Side effects of treatment? @ -Adverse effects of the Macrobid Exacerbation, Progression, or Severe Exacerbation] @ -Not applicable Poses a threat to life or bodily function? @ -May impact function depending on the severity of her symptoms. Return precautions reviewed in depth, the patient is instructed to return to the emergency department with any new, worsening, or concerning symptoms. Patient verbalized understanding. This case was discussed in detail with the attending ED physician. Presentation, findings, and treatment plan discussed in detail as well. - Lab Data Lab Results 05/01/22 05/01/22 Range/Units 18:49 18:49 Urine Color Yellow Urine Appearance Cloudy H (Clear) Urine pH 6.0 (5.0-8.0) Ur Specific [place] 1.024 (1.001-1.035) Urine Protein 1+ H (Negative) Urine Glucose (UA) Negative (Negative) Urine Ketones Trace H (Negative) Urine Blood Large H (Negative) Urine Nitrite Positive H (Negative) Urine Bilirubin Negative (Negative) Urine Urobilinogen <2.0 (<2.0) mg/dL Ur Leukocyte Esterase Large H (Negative) Urine RBC >182 H (0-5) /hpf Urine WBC >182 H (0-5) /hpf Urine WBC Clumps Few H (None) /hpf Ur Squamous Epith Cells 2 (0-4) /hpf Urine Bacteria Rare H (None) /hpf Urine Mucus Many H (None) /hpf Urine HCG, Qual Not Detected (Not Detectd) Disposition Clinical Impression: Urinary tract infection Disposition: HOME SELF-CARE Instructions (If sedation given, give patient instructions): Urinary Tract Infection in Women (ED) Additional Instructions: Return to the emergency department with any new, worsening, or concerning symptoms. Take the Macrobid twice daily for 5 days. You can alternate with ibuprofen and Tylenol as needed for additional pain relief. Follow up with your primary care provider in 1-2 days. Prescriptions: Nitrofurantoin Monohyd/M-Cryst [Macrobid] 100 mg PO Q12HR 5 Days #10 cap Is patient prescribed a controlled substance at d/c from ED?: No Referrals: Leatha Chahal MD [Primary Care Provider] - 1-2 days
== END 2022-05-01 22:38 | disposition home or self-care (01) ==
LOC: EC 18:25
DX: N39.0 Urinary tract infection, site not specified (principal); Z88.1 Allergy status to other antibiotic agents
CPT/HCPCS: 81001; 81025; 87086; 99283; 99284

== ENCOUNTER 2022-05-04 12:03 | Emergency (ER) | payer OTHER ==
--- NOTE | 2022-05-04 12:16 | ED ---
General Adult HPI - General Source: patient, RN notes reviewed Mode of arrival: ambulatory Limitations: no limitations <Farooq Bowers - Last Filed: 05/04/22 12:15> <Giselle Michelle - Last Filed: 05/04/22 22:37> - General Stated complaint: urogenital Time Seen by Provider: 05/04/22 12:15 - History of Present Illness Initial comments: 31-year-old female presents emergency Department chief complaint of UTI, worsening pain. Patient states she was seen here other day was diagnosed with UTI states that she's been on antibiotics states that she started having worsening back pain, flank pain today. States the pain spreading throughout her abdomen that she does complain of some right arm discomfort. Patient denies any reports of fever she does not patient offers no other associated complaints (Farooq Bowers) Advance triage notes reviewed. Patient has been taking ABX as prescribed. She reports her dysuria has resolved. Denies fever, chills, chest pain, palpitations, nausea, vomiting, diarrhea. (Giselle Michelle) - Related Data Previous Rx's Medication Instructions Recorded HYDROcodone/APAP 5-325MG [[place] 1 tab PO Q6HR PRN 3 Days #12 tab 12/09/21 5-325] Nitrofurantoin Monohyd/M-Cryst 100 mg PO Q12HR 5 Days #10 cap 05/01/22 [Macrobid] Allergies Allergy/AdvReac Type Severity Reaction Status Date / Time ceftriaxone [From Rocephin] Allergy Rash/Hives Verified 12/09/21 07:19 Review of Systems ROS Other: All systems not noted in ROS Statement are negative. <Farooq Bowers - Last Filed: 05/04/22 12:15> ROS Other: All systems not noted in ROS Statement are negative. <Giselle Michelle - Last Filed: 05/04/22 22:37> ROS Statement: Those systems with pertinent positive or pertinent negative responses have been documented in the HPI. Past Medical History Past Medical History: No Reported History Additional Past Medical History / Comment(s): OB history: first two pregnancies were vaginal deliveries at 39 and 40 weeks. This is her third and she has had care with Dr. Phillips since 8 weeks gestation. Blood type is A+, antibodies negative, rubella immune, RPR nonreactive, hepatitis B negative, HIV nonreactive, toxoplasmosis negative, GBS negative. History of Any Multi-Drug Resistant Organisms: None Reported Past Surgical History: Tonsillectomy, Tubal Ligation Additional Past Surgical History / Comment(s): wisdom teeth Past Anesthesia/Blood Transfusion Reactions: No Reported Reaction Past Psychological History: No Psychological Hx Reported Smoking Status: Never smoker Past Alcohol Use History: None Reported Past Drug Use History: None Reported - Past Family History Mother Family Medical History: No Reported History <Farooq Bowers - Last Filed: 05/04/22 12:15> General Exam General appearance: alert, in no apparent distress Head exam: Present: atraumatic, normocephalic, normal inspection Eye exam: Present: normal appearance, PERRL, EOMI. Absent: scleral icterus, conjunctival injection, periorbital swelling ENT exam: Present: normal exam, mucous membranes moist Neck exam: Present: normal inspection. Absent: tenderness, meningismus, lympha denopathy Respiratory exam: Present: normal lung sounds bilaterally. Absent: respiratory distress, wheezes, rales, rhonchi, stridor Cardiovascular Exam: Present: regular rate, normal rhythm, normal heart sounds. Absent: systolic murmur, diastolic murmur, rubs, gallop, clicks GI/Abdominal exam: Present: soft, normal bowel sounds. Absent: distended, tenderness, guarding, rebound, rigid Extremities exam: Present: normal inspection, full ROM, normal capillary refill. Absent: tenderness, pedal edema, joint swelling, calf tenderness Back exam: Present: normal inspection Neurological exam: Present: alert, oriented X3, CN II-XII intact Psychiatric exam: Present: normal affect, normal mood Skin exam: Present: warm, dry, intact, normal color. Absent: rash <Giselle Michelle - Last Filed: 05/04/22 22:37> Course Vital Signs 05/04/22 05/04/22 05/04/22 12:13 15:24 16:44 Temperature 97 F L 98.4 F 98.1 F Pulse Rate 69 80 64 Respiratory 16 16 17 Rate Blood Pressure 148/77 126/72 114/62 O2 Sat by Pulse 100 98 100 Oximetry Medical Decision Making - Lab Data Result diagrams: 05/04/22 12:20 05/04/22 12:20 <Giselle Michelle - Last Filed: 05/04/22 22:37> - Medical Decision Making Was pt. sent in by a medical professional or institution (KOURTNEY Diaz, ASSISTANT SPA DIRECTOR, urgent care, hospital, or shelter...) When possible be specific @ -[No] Did you speak to anyone other than the patient for history (EMS, parent, family, police, friend...)? What history was obtained from this source @ -[No] Did you review nursing and triage notes (agree or disagree)? Why? @ -[I reviewed and agree with nursing and triage notes] Were old charts reviewed (outside hosp., previous admission, EMS record, old EKG, old radiological studies, urgent care reports/EKG's, shelter records)? Report findings @ -[No old charts were reviewed] Differential Diagnosis (chest pain, altered mental status, abdominal pain women, abdominal pain men, vaginal bleeding, weakness, fever, dyspnea, syncope, headache, dizziness, GI bleed, back pain, seizure, CVA, palpatations, mental health)? @ -[not applicable] EKG interpreted by me (3pts min.). @ -[As above] X-rays interpreted by me (1pt min.). @ -negative for evidence for nephrolithiasis CT interpreted by me (1pt min.). @ -[None done] U/S interpreted by me (1pt. min.). @ -[None done] What testing was considered but not performed or refused? (CT, X-rays, U/S, labs)? Why? @ -[None] What meds were considered but not given or refused? Why? @ -[None] Did you discuss the management of the patient with other professionals (professionals i.e. KOURTNEY Diaz, ASSISTANT SPA DIRECTOR, lab, RT, psych nurse, clinical social work aide, pulverizing and sifting operator, teacher, college service officer, onsite case manager)? Give summary @ -[No] Was smoking cessation discussed for >3mins.? @ -[No] Was critical care preformed (if so, how long)? @ -[No] Were there social determinants of health that impacted care today? How? (Homelessness, low income, unemployed, alcoholism, drug addiction, transportation, low edu. Level, literacy, decrease access to med. care, fdc, rehab)? @ -[No] Was there de-escalation of care discussed even if they declined (Discuss DNR or withdrawal of care, Hospice)? DNR status @ -[No] What co-morbidities impacted this encounter? (DM, HTN, Smoking, COPD, CAD, Cancer, CVA, ARF, Chemo, Hep., AIDS, mental health diagnosis, sleep apnea, morbid obesity)? @ -[None] Was patient admitted / discharged? Hospital course, mention meds given and route, prescriptions, significant lab abnormalities, going to OR and other pertinent info. @ 31-year-old female presenting to the emergency department for UTI and right arm parasthesias. Physical exam is essentially unremarkable. I discussed in detail the importance with follow up with PCP. She was given a referral for Dr. Lange, urologist. Patient verbalized understanding and all questions were addressed. Patient was discharged in stable condition discussed the case with Dr. Jenkins [facility] who agrees with plan for discharge. Undiagnosed new problem with uncertain prognosis? @ -[No] Drug Therapy requiring intensive monitoring for toxicity (Heparin, Nitro, Insulin, Cardizem)? @ -[No] Were any procedures done? @ -[No] Diagnosis/symptom? @ -arm pasasthesias Acute, or Chronic, or Acute on Chronic? @ -acute Uncomplicated (without systemic symptoms) or Complicated (systemic symptoms)? @ -uncomplicated Side effects of treatment? @ -[No] Exacerbation, Progression, or Severe Exacerbation? @ -[No] Poses a threat to life or bodily function? How? (Chest pain, USA, MS, pneumonia, PE, COPD, DKA, ARF, appy, cholecystitis, CVA, Diverticulitis, Homicidal, Suicidal, threat to staff... and all critical care pts) @ -low likelihood (Giselle Michelle) - Lab Data Lab Results 05/04/22 05/04/22 05/04/22 Range/Units 12:20 12:20 12:20 WBC 4.8 (3.8-10.6) k/uL RBC 4.45 (3.80-5.40) m/uL Hgb 13.8 (11.4-16.0) gm/dL Hct 40.9 (34.0-46.0) % MCV 91.7 (80.0-100.0) fL MCH 31.0 (25.0-35.0) pg MCHC 33.9 (31.0-37.0) g/dL RDW 12.4 (11.5-15.5) % Plt Count 246 (150-450) k/uL MPV 8.9 Neutrophils % 43 % Lymphocytes % 45 % Monocytes % 7 % Eosinophils % 2 % Basophils % 1 % Neutrophils # 2.0 (1.3-7.7) k/uL Lymphocytes # 2.1 (1.0-4.8) k/uL Monocytes # 0.3 (0-1.0) k/uL Eosinophils # 0.1 (0-0.7) k/uL Basophils # 0.0 (0-0.2) k/uL Sodium 142 (137-145) mmol/L Potassium 3.7 (3.5-5.1) mmol/L Chloride 102 (98-107) mmol/L Carbon Dioxide 27 (22-30) mmol/L Anion Gap 13 mmol/L BUN 17 (7-17) mg/dL Creatinine 0.57 (0.52-1.04) mg/dL Est GFR (CKD-EPI)AfAm >90 (>60 ml/min/1.73 sqM) Est GFR (CKD-EPI)NonAf >90 (>60 ml/min/1.73 sqM) Glucose 98 (74-99) mg/dL Plasma Lactic Acid Gui 1.2 (0.7-2.0) mmol/L Calcium 9.9 (8.4-10.2) mg/dL Total Bilirubin 0.5 (0.2-1.3) mg/dL AST 30 (14-36) U/L ALT 26 (4-34) U/L Alkaline Phosphatase 98 (38-126) U/L Total Protein 8.8 H (6.3-8.2) g/dL Albumin 5.5 H (3.5-5.0) g/dL Lipase 155 (23-300) U/L Urine Color Urine Appearance (Clear) Urine pH (5.0-8.0) Ur Specific [place] (1.001-1.035) Urine Protein (Negative) Urine Glucose (UA) (Negative) Urine Ketones (Negative) Urine Blood (Negative) Urine Nitrite (Negative) Urine Bilirubin (Negative) Urine Urobilinogen (<2.0) mg/dL Ur Leukocyte Esterase (Negative) Urine HCG, Qual (Not Detectd) 05/04/22 05/04/22 Range/Units 13:11 13:11 WBC (3.8-10.6) k/uL RBC (3.80-5.40) m/uL Hgb (11.4-16.0) gm/dL Hct (34.0-46.0) % MCV (80.0-100.0) fL MCH (25.0-35.0) pg MCHC (31.0-37.0) g/dL RDW (11.5-15.5) % Plt Count (150-450) k/uL MPV Neutrophils % % Lymphocytes % % Monocytes % % Eosinophils % % Basophils % % Neutrophils # (1.3-7.7) k/uL Lymphocytes # (1.0-4.8) k/uL Monocytes # (0-1.0) k/uL Eosinophils # (0-0.7) k/uL Basophils # (0-0.2) k/uL Sodium (137-145) mmol/L Potassium (3.5-5.1) mmol/L Chloride (98-107) mmol/L Carbon Dioxide (22-30) mmol/L Anion Gap mmol/L BUN (7-17) mg/dL Creatinine (0.52-1.04) mg/dL Est GFR (CKD-EPI)AfAm (>60 ml/min/1.73 sqM) Est GFR (CKD-EPI)NonAf (>60 ml/min/1.73 sqM) Glucose (74-99) mg/dL Plasma Lactic Acid Gui (0.7-2.0) mmol/L Calcium (8.4-10.2) mg/dL Total Bilirubin (0.2-1.3) mg/dL AST (14-36) U/L ALT (4-34) U/L Alkaline Phosphatase (38-126) U/L Total Protein (6.3-8.2) g/dL Albumin (3.5-5.0) g/dL Lipase (23-300) U/L Urine Color Yellow Urine Appearance Clear (Clear) Urine pH 5.5 (5.0-8.0) Ur Specific [place] 1.005 (1.001-1.035) Urine Protein Negative (Negative) Urine Glucose (UA) Negative (Negative) Urine Ketones Negative (Negative) Urine Blood Negative (Negative) Urine Nitrite Negative (Negative) Urine Bilirubin Negative (Negative) Urine Urobilinogen <2.0 (<2.0) mg/dL Ur Leukocyte Esterase Negative (Negative) Urine HCG, Qual Not Detected (Not Detectd) Disposition <Farooq Bowers - Last Filed: 05/04/22 12:15> Is patient prescribed a controlled substance at d/c from ED?: No Time of Disposition: 16:17 <Giselle Michelle - Last Filed: 05/04/22 22:37> Clinical Impression: Arm paresthesia, right Disposition: HOME SELF-CARE Condition: Stable Instructions (If sedation given, give patient instructions): Paresthesia (ED) Additional Instructions: Please return to the nearest emergency department if symptoms worsen or persist Referrals: Leatha Chahal MD [Primary Care Provider] - 1-2 days Tigre Lange MD [STAFF PHYSICIAN] - 1-2 days
[2022-05-04 12:45] LABS: Basophils % (A) 1 %; Eosinophils # (A) 0.1 k/uL (0-0.7); Eosinophils % (A) 2 %; HCT 40.9 % (34.0-46.0); HGB 13.8 gm/dL (11.4-16.0); Lymphocytes # (A) 2.1 k/uL (1.0-4.8); Lymphocytes % (A) 45 %; MCHC 33.9 g/dL (31.0-37.0); MCV 91.7 fL (80.0-100.0); Mean Platelet Volume 8.9; Monocytes # (A) 0.3 k/uL (0-1.0); Monocytes % (A) 7 %; Neutrophils % (A) 43 %; Platelet Count 246 k/uL (150-450); RBC 4.45 m/uL (3.80-5.40); RDW 12.4 % (11.5-15.5); WBC 4.8 k/uL (3.8-10.6)
[2022-05-04 12:46] LABS: ALT 26 U/L (4-34); AST 30 U/L (14-36); African American GFR (CKD) >90 (>60 ml/min/1.73 sqM); Albumin 5.5 g/dL (3.5-5.0); Alkaline Phosphatase 98 U/L (38-126); Anion Gap 13 mmol/L; Blood Urea Nitrogen 17 mg/dL (7-17); Calcium 9.9 mg/dL (8.4-10.2); Carbon Dioxide 27 mmol/L (22-30); Chloride 102 mmol/L (98-107); Glucose 98 mg/dL (74-99); Lipase 155 U/L (23-300); Non-African American GFR(CKD) >90 (>60 ml/min/1.73 sqM); Potassium 3.7 mmol/L (3.5-5.1); Sodium 142 mmol/L (137-145); Total Bilirubin 0.5 mg/dL (0.2-1.3); Total Protein 8.8 g/dL (6.3-8.2)
[2022-05-04 13:46] LABS: Appearance,Urine Clear (Clear); Bilirubin,Urine Negative (Negative); Blood,Urine Negative (Negative); Color,Urine Yellow; Glucose,Urine (UA) Negative (Negative); Ketones,Urine Negative (Negative); Leukocyte Esterase,Urine Negative (Negative); Nitrite,Urine Negative (Negative); PH, Urine 5.5 (5.0-8.0); Protein,Urine Negative (Negative); Specific Gravity,Urine 1.005 (1.001-1.035); Urobilinogen,Urine <2.0 mg/dL (<2.0)
--- NOTE | 2022-05-04 15:58 | XR ---
EXAMINATION TYPE: XR KUB DATE OF EXAM: 05/04/2022 3:43 PM INDICATION: Patient age:Female; 31 years old; Reason for study: r/out nephrolithiasis; PH[facility]. COMPARISON: None relevant. TECHNIQUE: One radiographic view of the abdomen was obtained. FINDINGS: The bowel gas pattern is nonspecific without dilated loops of small or large bowel. No evid ence to suggest pneumoperitoneum. The osseous structures are intact. Pelvic phleboliths are present . Fecal material and gas are demonstrated throughout the colon and rectum. Moderate stool burden is seen throughout the colonic bowel. IMPRESSION: Moderate stool burden concerning for constipation without evidence to suggest obstruction.
[2022-05-04 16:45] VITALS: BP 114/62; PULSE 64; RESP 17; TEMP 98.1
== END 2022-05-04 16:45 | disposition home or self-care (01) ==
LOC: EC 12:03
DX: R20.2 Paresthesia of skin (principal); Z88.1 Allergy status to other antibiotic agents
CPT/HCPCS: 36415; 74018; 80053; 81003; 81025; 83605; 83690; 85025; 99283

== ENCOUNTER → 2022-05-08 | Outpatient (CLI) | payer OTHER ==
--- NOTE | 2022-05-09 07:24 | US ---
EXAMINATION TYPE: US kidneys/renal and bladder DATE OF EXAM: 05/08/2022 COMPARISON: KUB 05/04/2022 CLINICAL HISTORY: N20.0 CALCULUS OF KIDNEY. UTI hx of stones EXAM MEASUREMENTS: Right Kidney: 9.3 x 3.9 x 4.5 cm Left Kidney: 10.9 x 5.0 x 4.7 cm Right Kidney: No hydronephrosis or masses seen. Lower limited due to gas. Left Kidney: Cystic area upper pole 1.6 x 1.2 x 1.0 cm Bladder: wnl Bilateral Jets seen: Yes There is no evidence for hydronephrosis at this point in time. No nephrolithiasis is seen. No solid masses are identified. A cyst is demonstrated within the superior pole of the left kidney measuring up to 1.6 cm. The urinary bladder is anechoic. Bilateral ureteral jets are seen. IMPRESSION: 1. No hydronephrosis. 2. No shadowing renal calculi. 3. Left renal cyst.
== END | disposition home or self-care (01) ==
LOC: RADUSWWP 14:42
PROVIDERS: ATTEND Family Medicine
DX: N28.1 Cyst of kidney, acquired (principal); N20.0 Calculus of kidney
CPT/HCPCS: 76770

== ENCOUNTER → 2022-10-30 | Outpatient (CLI) | payer BC, OTHER ==
--- NOTE | 2022-10-31 07:21 | US ---
EXAMINATION TYPE: US pelvic complete DATE OF EXAM: 10/30/2022 COMPARISON: US 2019 CLINICAL INDICATION: Female, 32 years old with history of N92.1 EXCESSIVE AND FREQUENT MENSTRUATION W ITH IRREGULAR C; Heavy painful periods TECHNIQUE: Transvaginal (TV) and Transabdominal (TA) . Transabdominal sonographic images of the pel vis were acquired. Date of LMP: 10/17/2022 EXAM MEASUREMENTS: Uterus: 9.3 x 4.7 x 5.5 cm Endometrial Stripe: 1.2 cm Right Ovary: 4.3 x 2.5 x 3.0 cm Left Ovary: 3.1 x 1.9 x 2.7 cm 1. Uterus: retroverted 2. Endometrium: appears within normal limits for patient's age. 3. Right Ovary: 2.5cm cyst 4. Left Ovary: wnl 5. Bilateral Adnexa: wnl 6. Posterior cul-de-sac: small amount of fluid IMPRESSION: No evidence for acute process. Endometrium appears within normal limits.
== END | disposition home or self-care (01) ==
LOC: RADUSWWP 16:08
PROVIDERS: ATTEND Obstetrics & Gynecology
DX: N92.1 Excessive and frequent menstruation with irregular cycle (principal)
CPT/HCPCS: 76856

== ENCOUNTER → 2022-12-26 | Outpatient (CLI) | payer BC, OTHER ==
[2022-12-26 16:12] LABS: BUN/Creat Ratio 18.67 Ratio (12.00-20.00); Blood Urea Nitrogen 11.2 mg/dL (9.0-27.0); Calcium 10.2 mg/dL (8.7-10.3); Carbon Dioxide 25.5 mmol/L (21.6-31.8); Chloride 101 mmol/L (96-109); Glucose 91 mg/dL (70-110); Potassium 4.8 mmol/L (3.5-5.5); Sodium 139 mmol/L (135-145)
[2022-12-26 17:15] LABS: Basophils # (A) 0.06 X 10*3/uL (0.00-0.10); Basophils % (A) 1.1 %; Eosinophils # (A) 0.14 X 10*3/uL (0.04-0.35); Eosinophils % (A) 2.6 %; HCT 42.8 % (37.2-46.3); HGB 13.6 d/dL (12.0-15.0); Lymphocytes # (A) 2.17 X 10*3/uL (0.90-5.00); Lymphocytes % (A) 39.7 %; MCH 29.5 pg (27.0-32.0); MCHC 31.8 d/dL (32.0-37.0); MCV 92.8 FL (80.0-97.0); Mean Platelet Volume 12.3 FL (9.5-12.2); Monocytes # (A) 0.58 X 10*3/uL (0.20-1.00); Monocytes % (A) 10.6 %; NRBC Per 100 WBC 0 X 10*3/uL (0.00-0.01); Neutrophils # (A) 2.51 X 10*3/uL (1.80-7.70); Neutrophils % (A) 45.8 %; Platelet Count 242 X 10*3/uL (140-440); RBC 4.61 X 10*6/uL (4.10-5.20); WBC 5.47 X 10*3/uL (4.50-10.00)
== END | disposition home or self-care (01) ==
LOC: LABWHC1 09:52
PROVIDERS: ATTEND Obstetrics & Gynecology
DX: Z01.812 Encounter for preprocedural laboratory examination (principal)
CPT/HCPCS: 36415; 80048; 85025

== ENCOUNTER 2023-01-05 05:34 | Day surgery (SDC) | payer BC, OTHER ==
--- NOTE | 2023-01-04 10:15 | P.HPOB ---
History of Present Illness H&P Date: 01/04/23 Chief Complaint: Menorrhagia, uterine prolapse, pelvic pain This is a 32 y.o. female, 4, para 4, who presents for total vaginal hysterectomy, possible total abdominal hysterectomy due to uterine prolapse, pelvic pain, dyspareunia, and menorrhagia with regular cycle. She complains of very heavy, painful menses lasting up to 10 days. She also has pain and cramping up to a week before her menses. She continues to have dyspareunia. Pelvic ultrasound showed uterus measuring 9.3 x 4.7 x 5.5 cm, endometrial thickness 1.2 cm, right ovary with 2.5 cm cyst. OB Hx: History of 4 vaginal deliveries. 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 History of tubal ligation. Social Hx: . Homemaker. Review of Systems Constitutional: Denies chills, Denies fever Eyes: denies blurred vision, denies pain Ears, nose, mouth and throat: Denies headache, Denies sore throat Cardiovascular: Denies chest pain, Denies shortness of breath Respiratory: Denies cough Gastrointestinal: Denies abdominal pain, Denies diarrhea, Denies nausea, Denies vomiting Genitourinary: Reports dysmenorrhea, Reports dyspareunia, Reports menorrhagia, Reports pelvic pain, Reports prolapse symptoms Musculoskeletal: Denies myalgias Integumentary: Denies pruritus, Denies rash Neurological: Denies numbness, Denies weakness Psychiatric: Denies anxiety, Denies depression Endocrine: Denies fatigue, Denies weight change Past Medical History Past Medical History: No Reported History Additional Past Medical History / Comment(s): prolapsed uterus History of Any Multi-Drug Resistant Organisms: None Reported Past Surgical History: Tonsillectomy, Tubal Ligation Additional Past Surgical History / Comment(s): wisdom teeth Past Anesthesia/Blood Transfusion Reactions: Previous Problems w/ Anesthesia Additional Past Anesthesia/Blood Transfusion Reaction / Comment(s): states was told they "had trouble putting tube down" & had to use glidescope w/tubal last year Past Psychological History: No Psychological Hx Reported Smoking Status: Never smoker Past Alcohol Use History: Occasional Past Drug Use History: None Reported - Past Family History Mother Family Medical History: Cancer (Breast) Medications and Allergies Home Medications Medication Instructions Recorded Confirmed Type No Known Home Medications 01/01/23 01/05/23 History Allergies Allergy/AdvReac Type Severity Reaction Status Date / Time ceftriaxone [From Rocephin] Allergy Rash/Hives Verified 01/05/23 06:18 Exam Osteopathic Statement: *. No significant issues noted on an osteopathic structural exam other than those noted in the History and Physical/Consult. HEENT: within normal limits Heart: regular rate and rhythm Lungs: clear to auscultation bilaterally Abdomen: soft, non-tender Pelvic: uterus retroverted, mildly tender, grade 1-2 prolapse, mild bilateral adnexal tenderness with no masses. Grade 1 cystocele noted. Extremities: neg. Devon's Assessment and Plan (1) Uterine prolapse Current Visit: No Status: Acute Code(s): N81.4 - UTEROVAGINAL PROLAPSE, UNSPECIFIED SNOMED Code(s): 51151032 (2) Pelvic pain Current Visit: No Status: Acute Code(s): R10.2 - PELVIC AND PERINEAL PAIN SNOMED Code(s): 73689386 (3) Dyspareunia in female Current Visit: No Status: Acute Code(s): N94.10 - UNSPECIFIED DYSPAREUNIA SNOMED Code(s): 03427002 (4) Menorrhagia with regular cycle Current Visit: No Status: Acute Code(s): N92.0 - EXCESSIVE AND FREQUENT MENSTRUATION WITH REGULAR CYCLE SNOMED Code(s): 017673331 Plan: Proceed with total vaginal hysterectomy, possible total abdominal hysterectomy. I have discussed the risks, benefits, and alternative therapies for the above- mentioned procedure and for both sedation/anesthesia as well as necessary blood products administration, if indicated, as they pertain to this patient. The patient has indicated her understanding and acceptance of the risks and procedures discussed.
[2023-01-05] MEDS ORDERED: HYDROmorphone 0.5 MG/0.5 ML SYRINGE IVP PRN (06:14)
[2023-01-05] MEDS ORDERED: ONDANSETRON 4 MG/2 ML VIAL IVP ONE (06:14)
[2023-01-05] MEDS ORDERED: MIDAZOLAM 2 MG/2 ML VIAL IV PRN (06:14)
[2023-01-05] MEDS ORDERED: LACTATED RINGERS 1,000 ML IV SCH (06:14)
[2023-01-05] MEDS ORDERED: DEXAMETHASONE SOD PHOSPHATE 4 MG/ML 1 ML VIAL IV ONE (06:14)
[2023-01-05] MEDS ORDERED: LIDOCAINE 1% (10MG/ML) FOR IV START INTRADERMA PRN (06:14)
[2023-01-05] MEDS ORDERED: PROPOFOL 10 MG/ML 20 ML VIAL IV ONE (07:25)
[2023-01-05] MEDS ORDERED: LIDOCAINE 2% INJ 20 MG/ML (2 ML VIAL) ONE (07:25)
[2023-01-05] MEDS ORDERED: MIDAZOLAM 2 MG/2 ML VIAL ONE (07:25)
[2023-01-05] MEDS ORDERED: diphenhydrAMINE 50 MG/ML 1 ML VIAL ONE (07:25)
[2023-01-05] MEDS ORDERED: MORPHINE SULFATE (PF) 0.3 MG/0.3 ML SYR ONE (07:25)
[2023-01-05] MEDS ORDERED: BACITRACIN ZINC 500 UNIT/GM OINT 28.4 GM TUBE TOPICAL ONE (08:28)
--- NOTE | 2023-01-05 08:34 | P.OP ---
Date of Procedure: 01/05/23 Preoperative Diagnosis: 1. Menorrhagia with regular cycle. 2. Uterine prolapse. 3. Pelvic pain. 4. And dyspareunia. Postoperative Diagnosis: Same Procedure(s) Performed: Total vaginal hysterectomy Anesthesia: spinal (Duramorph), other (IV sedation) Surgeon: Claudia Phillips Estimated Blood Loss (ml): 50 Pathology: other (Uterus with cervix) Condition: stable Disposition: floor Indications for Procedure: This is a 32 y.o. female, 4, para 4, who presents for total vaginal hysterectomy, possible total abdominal hysterectomy due to uterine prolapse, pelvic pain, dyspareunia, and menorrhagia with regular cycle. She complains of very heavy, painful menses lasting up to 10 days. She also has pain and cramping up to a week before her menses. She continues to have dyspareunia. Pelvic ultrasound showed uterus measuring 9.3 x 4.7 x 5.5 cm, endometrial thickness 1.2 cm, right ovary with 2.5 cm cyst. Operative Findings: Uterus is retroverted, slightly enlarged. Both ovaries are visualized. The left ovary does have a small simple cyst. Both tubes appeared normal. 32 uterine prolapse is noted. Description of Procedure: The patient is taken the operating room where she is placed in the dorsal lithotomy position. She is prepped and draped in the normal sterile fashion. Next a weighted speculum was placed in the patient's vagina and a right angle retractor was used to visualize the cervix. The anterior lip of the cervix is grasped with a single-tooth tenaculum. Next the cervix was circumferentially injected with one amp of epinephrine to 150 mL of normal saline. Next the cervix was circumscribed with a scalpel. The vaginal mucosa was pushed away from the cervix with a sponge. Next the uterosacral ligaments are clamped on either side with a Bambi clamp, cut with Vazquez scissors, and then sutured with 0 Vicryl suture in a Bambi transfixion stitch and then held on either side with a straight hemostat. Next the posterior peritoneal reflection was identified and entered sharply with Vazquez scissors. The edges of the vaginal mucosa was then tagged with 0 Vicryl suture and held with a curved hemostat for identification. Next a longbilled weighted speculum was placed through the posterior peritoneal reflection. Next the cardinal ligaments were clamped on either side with Bambi clamps, cut with Vazquez scissors, and then sutured with 0 Vicryl suture in Bambi transfixion stitches and cut. Next the vesicouterine peritoneum reflection is identified and entered sharply with Metzenbaum scissors. A right angle bladder retractor is then used to retract the bladder. The uterine arteries are clamped on either side with Bambi clamps, cut with Vazquez scissors, and then sutured with 0 Vicryl suture in Bambi transfixion stitches. The round ligament is also clamped on either side with a Bambi clamp, cut with Vazquez scissors, and sutured with 0 Vicryl suture in Bambi transfixion stitches. Next the uterine ovarian ligament and tube were clamped on either side with a Bambi clamp, cut with Vazquez scissors, and then sutured with 0 Vicryl suture in a [id number] stitch, flashed, and then free tied with another suture of 0 Vicryl suture. These pedicles were held with a straight Kp for identification. The uterus is removed from the field. Good hemostasis is noted. The left ovary is noted to have a simple cyst that is drained with Bovie cautery. Clear straw colored fluid was noted. Next the peritoneum is closed with 0 Vicryl suture in a pursestring fashion incorporating all the held ligaments. Next the uterine ovarian ligaments are tied together in the middle and cut. Next the vaginal cuff is sutured with 0 Vicryl suture in a running locked fashion. The uterosacral ligaments were also tied together in the midline prior to completely closing the vaginal cuff. Excellent hemostasis is noted. The Gonzalez catheter is inserted and clear urine is noted. Next the vagina is packed with half-inch iodoform gauze with bacitracin ointment. All sponge and needle counts are correct and the patient is then taken to recovery room in stable condition.
[2023-01-05] MEDS: MEPERIDINE 50 MG/ML SYRINGE IVP ONE ×2 (09:01→09:11)
[2023-01-05] MEDS ORDERED: ONDANSETRON 4 MG/2 ML VIAL IVP PRN (09:28)
[2023-01-05] MEDS ORDERED: ZOLPIDEM 5 MG TAB PO PRN (09:28)
[2023-01-05] MEDS ORDERED: METOCLOPRAMIDE 5 MG/ML 2 ML VIAL IVP PRN (09:28)
[2023-01-05] MEDS ORDERED: IBUPROFEN 600 MG TAB PO PRN (09:28)
[2023-01-05] MEDS ORDERED: SIMETHICONE 80 MG CHEWABLE PO PRN (09:28)
[2023-01-05] MEDS ORDERED: diphenhydrAMINE 50 MG/ML 1 ML VIAL IVP PRN (09:28)
[2023-01-05] MEDS ORDERED: ACETAMINOPHEN IV (For NPO) 1,000 MG in EMPTY BAG 1 BAG IVPB ONE (09:28)
[2023-01-05] MEDS: SENNOSIDES-DOCUSATE SODIUM 1 EACH TAB PO SCH (09:59)
[2023-01-05] MEDS: KETOROLAC 15 MG/ML 1 ML VIAL IVP PRN ×2 (17:07→23:40)
[2023-01-06] MEDS: SENNOSIDES-DOCUSATE SODIUM 1 EACH TAB PO SCH (01:16)
[2023-01-06 06:21] LABS: Basophils % (A) 0 %; Eosinophils # (A) 0.1 k/uL (0-0.7); Eosinophils % (A) 1 %; HCT 36.5 % (34.0-46.0); HGB 11.8 gm/dL (11.4-16.0); Lymphocytes # (A) 2.8 k/uL (1.0-4.8); Lymphocytes % (A) 34 %; MCH 30.3 pg (25.0-35.0); MCHC 32.3 g/dL (31.0-37.0); MCV 93.8 fL (80.0-100.0); Mean Platelet Volume 9.3; Monocytes # (A) 0.7 k/uL (0-1.0); Monocytes % (A) 8 %; Neutrophils # (A) 4.5 k/uL (1.3-7.7); Neutrophils % (A) 55 %; Platelet Count 172 k/uL (150-450); RBC 3.89 m/uL (3.80-5.40); RDW 12.4 % (11.5-15.5); WBC 8.3 k/uL (3.8-10.6)
[2023-01-06] MEDS ORDERED: ACETAMINOPHEN TAB 325 MG TAB PO PRN (07:34)
--- NOTE | 2023-01-06 08:36 | P.DS ---
Providers Date of admission: 01/05/2023 Expected date of discharge: 01/06/23 Attending physician: Claudia Phillips Primary care physician: Leatha Chahal - Discharge Diagnosis(es) (1) Uterine prolapse Current Visit: No Status: Acute (2) Pelvic pain Current Visit: No Status: Acute (3) Dyspareunia in female Current Visit: No Status: Acute (4) Menorrhagia with regular cycle Current Visit: No Status: Acute Hospital Course: This is a 32-year-old female who underwent a total vaginal hysterectomy on 01/05/2023. Postoperatively she has done well. Her catheter was removed this morning. She has not urinated yet. She has been ambulating. She is passing flatus but no bowel movement yet. Her pain is fairly well controlled at this time. Bleeding has been very minimal. She denies any nausea or vomiting. She is tolerating regular diet. Procedures: Total vaginal hysterectomy on 01/05/2023 Patient Condition at Discharge: Stable Plan - Discharge Summary Discharge Rx Participant: Yes New Discharge Prescriptions: New Ibuprofen [Motrin] 600 mg PO Q6HR PRN #60 tab PRN Reason: Mild Discomfort Discharge Medication List Ibuprofen [Motrin] 600 mg PO Q6HR PRN #60 tab 01/06/23 [Rx] Follow up Appointment(s)/Referral(s): Claudia Phillips DO [Doctor of Osteopathic Medicine] - 1 Week Activity/Diet/Wound Care/Special Instructions: Activity as tolerated. Diet as tolerated. May shower, but no tub baths for 1 week. No intercourse for 6 weeks. No heavy lifting. Discharge Disposition: HOME SELF-CARE
[2023-01-06 09:11] VITALS: BP 106/66; PULSE 85; RESP 15; TEMP 98.8
== END 2023-01-06 10:42 | disposition home or self-care (01) ==
LOC: OR 05:34 → 4FBP 08:31 → OR 01-06 10:42
PROVIDERS: ATTEND Obstetrics & Gynecology
DX: N87.9 Dysplasia of cervix uteri, unspecified (principal); N72 Inflammatory disease of cervix uteri; N88.8 Other specified noninflammatory disorders of cervix uteri; N83.201 Unspecified ovarian cyst, right side; N83.202 Unspecified ovarian cyst, left side; N81.4 Uterovaginal prolapse, unspecified; F10.90 Alcohol use, unspecified, uncomplicated; Z98.890 Other specified postprocedural states; Z88.1 Allergy status to other antibiotic agents
CPT/HCPCS: 81025; 86900; 86901; 86850; 58260; J0171; J1100; J2175; J0690; J2405; J0131; J1885; 85025; 88305

== ENCOUNTER → 2023-10-27 | Outpatient (CLI) | payer BC, OTHER ==
[2023-10-27 10:22] VITALS: BP 139/78; PULSE 72; RESP 16; TEMP 98.3
--- NOTE | 2023-10-27 10:57 | P.HPOB ---
History of Present Illness H&P Date: 10/27/23 Chief Complaint: The patient is here for her routine gynecologic exam This is a 33-year-old G4, P4 with an LMP of December 2022. Patient is here to establish with this office. She is status post vaginal hysterectomy for menorrhagia, prolapse, and pain. She previously saw Dr. Phillips for her gynecologic care. It has been about 1 year since her last well woman exam. She states her symptoms significantly improved after her vaginal hysterectomy. She is without gynecologic complaints. Review of Systems The patient's weight has been stable over the last year. She denies respiratory, cardiac, or G.I. problems. Past Medical History Past Medical History: No Reported History Additional Past Medical History / Comment(s): Seasonal allergies. PAST LIBRARY CUSTOMER SERVICE CLERK HISTORY: She has no history of STDs. History of Any Multi-Drug Resistant Organisms: None Reported Past Surgical History: Tonsillectomy, Tubal Ligation Additional Past Surgical History / Comment(s): wisdom teeth. Lipoma removed from the right arm. Past Anesthesia/Blood Transfusion Reactions: No Reported Reaction Past Psychological History: No Psychological Hx Reported Smoking Status: Never smoker Past Alcohol Use History: Occasional (1 drink per week.) Past Drug Use History: None Reported Additional History: She has been since 2016. She works part-time as a cook. - Past Family History Mother Family Medical History: Cancer, Thyroid Disorder Additional Family Medical History / Comment(s): Breast cancer. Father Family Medical History: Hyperlipidemia, Hypertension Sister(s) Family Medical History: Thyroid Disorder Medications and Allergies Home Medications Medication Instructions Recorded Confirmed Type Ibuprofen [Motrin] 600 mg PO Q6HR PRN #60 tab 01/06/23 10/27/23 Rx Loratadine [Claritin] 10 mg PO DAILY 10/27/23 10/27/23 History Allergies Allergy/AdvReac Type Severity Reaction Status Date / Time ceftriaxone [From Rocephin] Allergy Rash/Hives Verified 01/05/23 06:18 Exam Vital Signs Temp Pulse Resp BP Pulse Ox 10/27/23 10:20 98.3 F 72 16 139/78 100 Intake and Output 10/26/23 10/27/23 10/27/23 22:59 06:59 14:59 Other: Weight 65.317 kg Height 5 feet 9 inches, weight 144 pounds, BMI 21.3. This is a well-developed well-nourished white female who is alert and oriented times 3 in no acute distress. HEENT: Within normal limits. NECK: Supple without mass or thyromegaly. CHEST AND LUNGS: Clear to auscultation. HEART: Regular rate and rhythm. BREASTS: Are without mass or discharge. AXILLARY EXAM: Negative for adenopathy. BACK: Negative for CVA tenderness. ABDOMEN: Soft, nontender, without palpable masses. PELVIC EXAM: External genitalia appears normal. Vagina appears normal. There is no evidence of prolapse. The vaginal cuff is well supported. Bimanual examination is negative for mass or tenderness. RECTAL EXAM:negative for mass or tenderness. EXTREMITIES: Nontender. IMPRESSION: 1. 33-year-old female status post vaginal hysterectomy for benign reasons, with normal gynecologic exam. PLAN: 1. Pap smears have been discontinued. 2. Self breast awareness was discussed with the patient. We have also discussed symptoms associated with inflammatory breast cancer. 3. Screening mammograms to begin at age 40. 4. Osteoporosis prevention was discussed. I have stressed the importance of adequate calcium, vitamin D and regular exercise. Recommended amounts of calcium and vitamin D were also discussed. 5. She was advised to return in one year for her annual well woman exam.
== END ==
LOC: WWCWWP 09:41
PROVIDERS: ATTEND Obstetrics & Gynecology
DX: Z01.419 Encounter for gynecological examination (general) (routine) without abnormal findings (principal); N92.0 Excessive and frequent menstruation with regular cycle; Z80.3 Family history of malignant neoplasm of breast; Z90.710 Acquired absence of both cervix and uterus; Z88.1 Allergy status to other antibiotic agents